=== PATIENT | female | born 1985 | race Caucasian/White ===

== ENCOUNTER 2016-08-25 10:20 | Inpatient (IN) | payer MEDICAID, OTHER ==
[~2016-08-25] VITALS: Ht 175.3 cm; Wt 145.2 kg
[~2016-08-25 10:20] MED LIST: ALBU18HF INH; BIFI4CAP PO; BUSP10TA2 PO; DULO60CA42 PO; HALO1TAB PO; LEVO25TA5 PO; LOPE2CAP PO; METF-496 PO; MIRT15TA6 PO; MONT10TA23 PO; NAPR220C11 PO; ONDA4TAB9 PO; PRAZ5CAP3 PO; PREG200C PO; PROP20TA5 PO; RANI150C4 PO
[2016-08-25 10:33] VITALS: BP 149/87; PULSE 106; RESP 18; O2SAT 97
[2016-08-25 10:59] VITALS: BP 125/79; PULSE 110; RESP 16; O2SAT 97
--- NOTE | 2016-08-25 11:33 | ED.REPORT ---
HPI-Psychiatric Illness Date of Service August 25, 2016 ED Provider: Yves Sheppard PA-C Sarita is a 21-year-old female female with a history of Borderline personality disorder, major depression with psychosis, fibromyalgia and orthostatic tachycardia syndrome who presents with a chief complaint of suicidal and homicidal ideations. She reports several months of suicidal and homicidal ideation. Patient states that she considered suicide by drinking excessive amounts of alcohol and taking pills. She is troubled by thoughts of killing children such as at a school or her niece and nephew. She states she would " cut them up with a knife." She states that she has "paranoia about clowns at work behind all the doors and control people." She states that "I think the children have global technology that they use to communicate with the clowns. I do not want her to anybody, but I think that is it either them or me." Patient has been to health services through Dr. Olinda Soto at the [facility]. She reports she has been taking her medications. She was last hospitalized 9 months ago in this institution. Patient reports history of a suicide attempt at age 13. "I had a knife and was going to cut myself as interrupted." Denies access to firearms, recreational drug use, suicide by family members or friends. Denies other complaints including fever, headache. Nursing Notes Stated Complaint: SUICIDAL,HOMICIDAL,PSYCHOTIC DEPRESSION Chief Complaint: Psychiatric Complaint Nursing Notes Reviewed: Yes Allergies: Coded Allergies: Penicillins (Verified Allergy, Severe, swelling in the joints, 01/20/15) lamotrigine (Verified Adverse Reaction, Severe, Hallucinations, 12/04/15) Sulfa (Sulfonamide Antibiotics) (Verified Adverse Reaction, Intermediate, nausea and vomiting, 01/20/15) hydrocodone (Verified Adverse Reaction, Intermediate, nausea and vomiting , 01/20/15) Scheduled Amitriptyline (Amitriptyline) 25 Mg Tab 25 MG PO HS Buspirone (Buspirone) 10 Mg Tablet 20 MG PO BID Duloxetine (Cymbalta) 60 Mg Capsule.dr 120 MG PO DAILY Haloperidol (Haloperidol) 5 Mg Tablet 5 MG PO TID Lisdexamfetamine Dimesylate (Vyvanse) 70 Mg Capsule 70 MG PO DAILY Montelukast (Montelukast) 10 Mg Tablet 10 MG PO MORNING Naproxen Sodium (Aleve) 220 Mg Capsule 220 MG PO MORNING take 2 in am for fibromyalgia pain Prazosin (Prazosin) 5 Mg Capsule 15 MG PO HS Propranolol HCl (Propranolol HCl) 20 Mg Tablet 40 MG PO QID Ranitidine (Ranitidine) 150 Mg Capsule 150 MG PO BID diphenhydrAMINE HCl (Benadryl) 25 Mg Capsule 25 MG PO BID Scheduled PRN Albuterol Sulfate (Ventolin HFA Inhaler) 200 Puff/18 Gm Inhaler 1-2 PUFF INH PRN For Shortness of Breath Epinephrine (Epinephrine) 0.1 Mg/1 Ml Syringe 0.1 MG IJ PRN For Anaphyllaxis Ondansetron ODT (Zofran ODT) 4 Mg Tablet 4 MG PO TID PRN PRN For Nausea oxyCODONE-Acetaminophen 5-325 mg (oxyCODONE-Acetaminophen 5-325 mg) 1 Each Tablet 2 TAB PO Q4H PRN PRN For Pain General Time Seen by MD: 11:09 Chief Complaint Homicidal ideation Risk-Psychiatric Illness Suicide Risk Stratification Suicide Risk Factors - Adult: : Prior psych admissionNo: Access to firearms, Alcohol use, Close associate suicide, Family Hx of Suicide, Previous attempt, Substance abuse RF Statements: Risk factors reviewed Past Medical History Past Medical History Notes: [facility]- for Major Depression, recurrent, with psychotic feactures Past Medical History Fibromyalgia Postural orthostatic tachycardia syndrome "POTS syndrome" Major depression Major Depression with Psychosis/Borderline Personalitly Asthma GERD Family History Noncontributory Smoking History Never Smoker Social History Alcohol Use: Denies alcohol use Drug Use: Denies drug use Other Social History: Local resident Ambulatory Status Independent Review of Systems General: Denies fever, chills, malaise. HEENT: Denies congestion, headache, sore throat. Respiratory: Denies dyspnea, cough, shortness of breath, wheezing. Cardiovascular: Denies chest pain, palpitations. Gastrointestinal: Denies vomiting, diarrhea, abdominal pain. Genitourinary: Denies frequency, urgency, dysuria, hematuria. Denies vaginal bleeding/discharge Otherwise as noted in HPI. Physical Exam General: Well appearing, well developed, well nourished, no acute distress. Head: Atraumatic, normocephalic. No mastoid tenderness. Eyes: No scleral icterus or injection. No discharge. PERRL. Vision grossly intact. Ears: Pinna and tragus nontender with manipulation. External auditory canal patent, atraumatic and without discharge. Tympanic membrane garcía, shiny and translucent without fluid, bulging, retraction or perforation. Hearing grossly intact. Nose: Symmetrical, nares patent without discharge. No frontal or maxillary sinus tenderness. Mouth/pharynx: normal dentition, mucus membranes moist. Tonsils 2+ and symmetrical, uvula midline. Pharynx noninjected, no cobblestoning or discharge. Voice clear. Neck: No tenderness or lymphadenopathy. Trachea midline. Respiratory: Regular rate and rhythm. Breath sounds present, clear to auscultation and equal bilaterally. No respiratory distress. No increased work of breathing, speaks in complete sentences. Cardiovascular: Tachycardic rate at 120 bpm (shortly after rising from floor) and regular rhythm, without murmur, gallop or rub. No pedal edema. Gastrointestinal: Abdomen flat and non-tender without guarding or rebound. Bowel sounds normoactive. Skin: Warm and dry. Neurological: Normal gait, rises from the floor easily, normal Romberg, negative pronator drift Cranial nerves: Vision grossly intact, PERRL, EOMI. Facial motion symmetrical, sensation to light touch over forehead, maxilla and mandible present and equal B /L. Voice clear and fluent, no drooling/pooling of saliva, uvula rises midline. Psychological: Alert and oriented x3. Behavior appropriate, interacts easily. Affect somewhat flat. Patient discusses bizarre delusions of clowns that control Society which are hiding behind her door, as well as transmission technology embedded in children, however she speaks of them with some detachment and describes it as "paranoia", implying some insight. Does state that "I believe they are real." She also refers frankly to "homicidal ideation " related to her cousins. No indication of responding to internal stimuli. Initial Vital Signs Vital Signs (First) Date Time Temp Pulse Resp B/P Pulse Ox O2 Delivery O2 Flow Rate FiO2 08/25/16 10:33 36.6 106 18 149/87 97 08/25/16 10:59 Room Air Initial VS: Vital signs abnormal (mild tachycardia) Interpretation & Diagnostics Lab Results Interpretation Result Diagram: 08/25/16 1139 08/25/16 1139 Test 08/25/16 11:05 08/25/16 11:38 08/25/16 11:39 Urine Opiates Screen Negative Urine Methadone Screen Negative Urine Barbiturates Screen Negative Urine Amphetamines Screen Positive Urine Benzodiazepines Screen Negative Urine Cocaine Metabolite Screen Negative Urine Cannabinoids Screen Negative Hold Urine Received (Received) White Blood Count 1.2th/mm3 (3.8-10.1) Red Blood Count 4.44mil/mm3 (3.90-5.20) Hemoglobin 13.5g/dL (12.0-15.6) Hematocrit 39.7% (35.0-46.0) Mean Corpuscular Volume 89.4fL (81-100) Mean Corpuscular Hemoglobin 30.4pg (27.0-35.0) Mean Corpuscular Hemoglobin Concent 34.0% (32.0-37.0) Red Cell Distribution Width 12.8% (12.3-15.4) Platelet Count 11bil/L (150-400) Neutrophils (%) (Auto) 8.2% (40-74) Lymphocytes (%) (Auto) 83.7% (14-46) Monocytes (%) (Auto) 0.8% (4-12) Eosinophils (%) (Auto) 1.6% (0-5) Basophils (%) (Auto) 1.6% (0-3) Sodium Level 136mEq/L (134-144) Potassium Level 4.8mEq/L (3.5-5.2) Chloride Level 96mEq/L (97-108) Carbon Dioxide Level 20mmol/L (18-29) Blood Urea Nitrogen 15mg/dL (6-20) Creatinine 0.98mg/dL (0.57-1.00) Estimat Glomerular Filtration Rate 94mL/min (>59) Glucose Level 167mg/dL (60-99) Calcium Level 9.6mg/dL (8.5-10.1) Total Bilirubin 0.4mg/dL (0.0-1.2) Aspartate Amino Transf (AST/SGOT) 40U/L (0-50) Alanine Aminotransferase (ALT/SGPT) 39U/L (0-32) Alkaline Phosphatase 89U/L (25-150) Total Protein 7.4g/dL (6.4-8.4) Albumin 4.6g/dL (3.4-5.0) Thyroid Stimulating Hormone (TSH) 2.770uIU/mL (0.450-4.500) Re-Eval/Medical Decision Med Decision/Clinical Course I discussed this case with Dr. Barahona. Consultation #1: Referral / Consult Name: Eduardo Miner MD Consulted With: Telephoner Call Returned at: 13:07 Note: Discussed findings of thrombocytopenia, leukopenia with Dr. Miner. He feels the patient will need a transfusion as well as a bone marrow biopsy which can be performed on Sunday. Considering the patient's psychiatric complaining he feels an admission to the medical floor is reasonable, he will consult tomorrow. Asks that a sample of peripheral blood be sent for flow cytometry. Consultation #2: Referral / Consult Name: Alec Peoples MD Consulted With: Hospitalist Call Returned at: 13:53 Car Builder: Accepts admit Note: Requests that we establish a early psychiatric consult. Consultation #3: Referral / Consult Name: Shalom Petit MD Consulted With: Psychiatry Call Returned at: 15:21 Note: Dr. Petit assessed the patient in the emergency department prior to being transferred to the floor. He has been prescribed for Haldol 5 mg twice a day as well as Ativan 1 mg 3 times a day and discontinue Zyprexa. She states she has no history of suicidal actions or homicidal actions and that he does not believe she is truly psychotic. He knows her well and has prescribed several neuroleptics with no reduction in hallucinations or paranoia. She believes her behavior is primarily related to an PTSD and borderline personality disorder. He states that he will see her on the floor tomorrow. Discharge & Departure Impression: Primary Impression: Thrombocytopenia Additional Impressions: Leukopenia Leukopenia type: unspecified Qualified Code: D72.819 - Decreased white blood cell count, unspecified Borderline personality disorder Disposition: ADMITTED TO HOSPITAL Referrals: Candi Sellers MD (PCP) EDSupervising Provider for APC: Ponec Barahona MD, Seth PA-C August 25, 2016 11:32
[2016-08-25 11:55] LABS: BASOPHILS % (AUTO) 1.6 % (0-3); EOSINOPHILS % (AUTO) 1.6 % (0-5); MONOCYTES % (AUTO) 0.8 % (4-12); Mean Corpuscular Hemoglobin 30.4 pg (27.0-35.0); Mean Corpuscular Volume 89.4 fL (81-100); NEUTROPHILS % (AUTO) 8.2 % (40-74)
[2016-08-25 12:48] LABS: Platelet Count 11 bil/L (150-400)
[2016-08-25] MEDS ORDERED: ONDA4TAB9 PO (13:27)
[2016-08-25] MEDS ORDERED: AMT25T PO (13:27)
[2016-08-25] MEDS ORDERED: [UNRECOGNIZED DRUG - OTHER] PO (13:27)
[2016-08-25] MEDS ORDERED: DIPH25CA6 PO (13:27)
[2016-08-25] MEDS ORDERED: HAL5 PO (13:27)
[2016-08-25] MEDS ORDERED: EPIN0.1S2 IJ (13:27)
[2016-08-25] MEDS ORDERED: Polyethylene Glycol (PEG) 17 Gm Powder PO PRN (14:00)
[2016-08-25] MEDS ORDERED: Ondansetron 2 mg/mL 2 mL Inj IVPUSH PRN (14:00)
[2016-08-25] MEDS ORDERED: Alum-Mag Hydrox-Simeth 30 mL Suspension PO PRN (14:00)
--- NOTE | 2016-08-25 14:05 | PCM.HPMED ---
Subjective Date of Service August 25, 2016 Primary Provider: Admitting Physician: Alec Peoples MD Primary Care Physician: Candi Sellers MD Attending Physician: Alec Peoples MD Chief Complaint: Suicidal/homicidal ideation History of Present Illness: 31-year-old female with a long history of severe depression with elements of psychosis came to the emergency room due to "a male voice in her head telling her she wanted to kill herself and others and how to do it". When I am speaking with the patient she is very calm and states she is actually afraid of dying but the voice keeps intruding into her thinking. While in the emergency room workup revealed that she was profoundly leukopenic/neutropenic and thrombocytopenic. She denies having been ill in the past month, no shortness of breath cough fevers abdominal pains nausea or vomiting diarrhea. She denies having any easy bleeding or bruising or even bleeding gums when she is brushing her teeth the near she comes as telling me about a lesion that bleeds a bit on the left upper side when she brushes. Review of Systems: Gen.: No fevers chills weight loss weight gain Eyes: no visual disturbances or blurring vision HEENT: No nose/throat drainage, no pain in ears or throat, no hearing loss Lymph: No lymph nodes noted Cardiac: No chest pain, orthopnea, PND, palpitations , pedal edema or dyspnea on exertion Pulmonary: no cough, wheezing or bringing up of sputum GI: No anorexia nausea vomiting blood or black in the stool : no dysuria hematuria urinary frequency or decrease in urine output Musculoskeletal: Joint swelling no joint pain no new muscle aches or back pain Neuro: No syncope, seizures no loss of consciousness no new focal weakness, numbness or tingling Psychiatric: New new anxiety insomnia or depression Suicidal and homicidal ideation as described above Endocrine: No new heat or cold intolerances polyuria or polydipsia Hematology: No lymphadenopathy or easy bleeding or bruising noted skin: No new rashes, stasis dermatitis Allergies Coded Allergies: Penicillins (Verified Allergy, Severe, swelling in the joints, 01/20/15) lamotrigine (Verified Adverse Reaction, Severe, Hallucinations, 12/04/15) Sulfa (Sulfonamide Antibiotics) (Verified Adverse Reaction, Intermediate, nausea and vomiting, 01/20/15) hydrocodone (Verified Adverse Reaction, Intermediate, nausea and vomiting , 01/20/15) Home Medications Amitriptyline (Amitriptyline) 25 Mg Tab 25 MG PO HS Buspirone (Buspirone) 10 Mg Tablet 20 MG PO BID Duloxetine (Cymbalta) 60 Mg Capsule.dr 120 MG PO DAILY Haloperidol (Haloperidol) 5 Mg Tablet 5 MG PO TID Lisdexamfetamine Dimesylate (Vyvanse) 70 Mg Capsule 70 MG PO DAILY Montelukast (Montelukast) 10 Mg Tablet 10 MG PO MORNING Naproxen Sodium (Aleve) 220 Mg Capsule 220 MG PO MORNING take 2 in am for fibromyalgia pain Prazosin (Prazosin) 5 Mg Capsule 15 MG PO HS Propranolol HCl (Propranolol HCl) 20 Mg Tablet 40 MG PO QID Ranitidine (Ranitidine) 150 Mg Capsule 150 MG PO BID diphenhydrAMINE HCl (Benadryl) 25 Mg Capsule 25 MG PO BID Scheduled PRN Albuterol Sulfate (Ventolin HFA Inhaler) 200 Puff/18 Gm Inhaler 1-2 PUFF INH PRN For Shortness of Breath Epinephrine (Epinephrine) 0.1 Mg/1 Ml Syringe 0.1 MG IJ PRN For Anaphyllaxis Ondansetron ODT (Zofran ODT) 4 Mg Tablet 4 MG PO TID PRN PRN For Nausea oxyCODONE-Acetaminophen 5-325 mg (oxyCODONE-Acetaminophen 5-325 mg) 1 Each Tablet 2 TAB PO Q4H PRN PRN For Pain PMH Fibromyalgia Postural orthostatic tachycardia syndrome "POTS syndrome" Major depression Major Depression with Psychosis/Borderline Personalitly Asthma GERD Family History-no known history of early diabetes cancer or heart disease Smoking History Never Smoker Social History Alcohol Use: Denies alcohol use Drug Use: Denies drug use Other Social History: Local resident Ambulatory Status Independent Social History Hx Alcohol Use: No Hx Substance Use: No Smoking Status: Never Smoker Exam Vital Signs Vital Sign - Last Date Time Temp Pulse Resp B/P Pulse Ox O2 Delivery O2 Flow Rate FiO2 08/25/16 10:59 36.6 110 16 125/79 97 Room Air Exam Gen.- A+ O 3 no apparent distress. Morbidly obese female lying in [facility] Eyes- open conjunctiva clear, pupils equal nonicteric Mouth- oral mucosa moist, no exudate No evidence of bleeding gums ENT- ears normal, nose normal Neck- supple/trach midline CVS- RRR no murmur or gallop Lungs- CTA GI- NABS/NT soft Musc- moving 4 no obvious deformity Neuro- cranial nerves II through XII intact to gross examination, nonfocal Skin- warm and dry, no rashes/lesions/wounds noted No signs of bruises Psych- pleasant and appropriate, quite as a matter fact he tells me about the voices talking of self-harm and harming others. She says they scare her Lab and Diagnostics Result Diagram: 08/25/16 1139 08/25/16 1139 Assessment & Plan 31-year-old female with a percussion and psychosis disorder presents to the emergency room with the same. In the workup she was found to have profound thrombocytopenia and leukopenia/neutropenia. Initial feeling is trace or side effects from Haldol/Zyprexa and there is no evidence of bleeding. Haldol that she started 9 months ago around the time of her last CBC which was normal and also she states is not working seems to be most likely offender. #Thrombocytopenia-differential includes viral, medication/other substance side effect (Haldol/Zyprexa and antipsychotics), liver disease, ITP and other autoimmune destructive disorders -Toxicology and alcohol screen negative except for amphetamine which she has been prescribed -Peripheral smear being requested to verify automatic differential -Checking EBV, Monospot, CMV and HIV -Transfusing sixpack and following up hours after first transfusion if platelets stay this is likely bone marrow suppression from medications -Of all her meds I think that Haldol is the most likely offender we will need to discuss what medications to utilize for control of her symptoms with Dr. Petit psychiatry. #Leukopenia/neutropenia-placing patient on neutropenic precautions, follow-up counts in a.m. #Depression with psychotic features/suicidal/homicidal ideation-thank you Dr. Petit psychiatry for consulting/following -Checking toxicology (positive for amphetamine patient taking prescribed amphetamine), alcohol screen, aspirin and Tylenol levels all negative -Holding vynase prescribed amphetamine at this #Prophylaxis-DVT, SCDs only heparin contraindicated, GI not indicated #Disposition- full code from home, not clear where she is going if she needs inpatient psychiatric treatment again when medically cleared. Alec Peoples MD August 25, 2016 14:05
[2016-08-25] MEDS ORDERED: LISD70CA2 PO (15:01)
[2016-08-25] MEDS ORDERED: OXYC1TAB24 PO (15:01)
[2016-08-25] MEDS ORDERED: NAPR220C11 PO (15:01)
[2016-08-25] MEDS ORDERED: ONDA4TAB6 PO (15:01)
[2016-08-25 15:18] LABS: INR 0.94 ratio
[2016-08-25] MEDS ORDERED: Albuterol 2.5 mg/3 mL Inhalation Solution NEB PRN (15:40)
[2016-08-25] MEDS ORDERED: diphenhydrAMINE 25 mg Capsule PO ONE (16:00)
[2016-08-25] MEDS: Albuterol 2.5 mg/3 mL Inhalation Solution NEB SCH (16:00)
--- NOTE | 2016-08-25 16:31 | DRSVH ---
PROCEDURE: CT BRAIN WITHOUT CONTRAST ([id number]) INDICATIONS: alt loc thrombocytopenia TECHNIQUE: Noncontrast 4.5 mm thick angled axial sections acquired from the foramen magnum to the vertex, with c oronal reformats. COMPARISON: [facility], MR, BRAIN W&W/O CONTRAST, 08/05/2014, 15:12. FINDINGS: Image quality: Excellent. CSF spaces: Basal cisterns are patent. No extra-axial fluid collections. Ventricles are normal in size and shape. Brain: No midline shift. No intracranial masses or hemorrhage. Nguyen-white matter interface is norm al. Skull and face: Calvarium and visualized facial bones are intact, without suspicious lesions. Sinuses: Visualized sinuses and mastoids are clear. IMPRESSION: No acute intracranial abnormality. Dictated by: Byron So M.D. on 08/25/2016 at 16:29 Approved by: Byron So M.D. on 08/25/2016 at 16:30
[2016-08-25] MEDS: 0.9% Sodium Chloride 250 ML IV SCH (16:45)
[2016-08-25] MEDS: LORazepam 1 mg Tablet PO PRN (16:50)
[2016-08-25 16:52] VITALS: BP 124/70; PULSE 122; RESP 16
[2016-08-25 16:55] VITALS: BP 124/70; PULSE 122; RESP 20; O2SAT 97
[2016-08-25 19:30] VITALS: BP 122/70; PULSE 112; RESP 20
--- NOTE | 2016-08-25 19:34 | NUR ---
Admission Pt arrived to [facility] from the ED at approx 1545. Pt arrived via w/c and was able to ambulate to hospital chair. IV SL, report from TAYLOR Ulloa in the ED. Admit completed and med rec done. Pt signed consent for platelet transfusion and agrees to sign no harm contract. Sitter at bedside. Pt appears diaphoretic, she states this is normal and is from her postural tachycardia. Pt answers questions appropriately and uses call light when needed.
--- NOTE | 2016-08-25 20:27 | CONS ---
[address] [address] CONSULTATION REPORT PATIENT: NIA LAST : 1985 MR#: [id number] ADMIT: 08/25/2016 JOB ID: [id number] DATE OF SERVICE: 08/25/2016 HISTORY OF PRESENT ILLNESS: The patient is a 31-year-old woman with borderline personality disorder and major depression that began about three years ago after her grandmother in front of her. Since that time, she has been hospitalized for psychotic depression approximately six times. She was seen today with suicidal and homicidal ideation. She was considering drinking excessive alcohol and killing herself with pills. She also had thoughts of killing children, such as her niece and nephew or local children at a school, cutting them up with a knife. She has been taking Cymbalta 120 mg by mouth daily, Haldol 5 mg by mouth three times daily, and Zyprexa. She denies any recreational drug use. Laboratory studies were done in the emergency department earlier today. She was found to be profoundly neutropenic with a total white count of 1.2 with 8% neutrophils and 84% lymphocytes. Hemoglobin was 13.5 with hematocrit 39.7%, and MCV of 89. Platelets were low at 11,000. She denied any bleeding or atypical bruising. She denies any recent fevers or signs of infection. PAST MEDICAL HISTORY: 1. Suicidal and homicidal ideation. 2. Psychotic depression with at least six hospitalizations in the past three years. 3. Hypothyroidism. 4. Postural tachycardia. 5. Hypertension. 6. GE reflux disease. 7. Fibromyalgia. 8. Asthma. ALLERGIES: 1. PENICILLIN. 2. LAMOTRIGINE. 3. SULFA. 4. HYDROCODONE. MEDICATIONS: 1. Vyvanse 70 mg p.o. daily. 2. Albuterol inhaler 1-2 puffs p.r.n. 3. Amitriptyline 25 mg p.o. q.h.s. 4. Buspirone 20 mg p.o. b.i.d. 5. Cymbalta 120 mg daily. 6. Haldol 5 mg p.o. t.i.d. 7. Levothyroxine 150 mcg p.o. daily. 8. Montelukast 10 mg p.o. q.a.m. 9. Naproxen 220 mg p.o. q.a.m. 10. Prazosin 15 mg p.o. q.h.s. 11. Propranolol 40 mg p.o. q.i.d. 12. Ranitidine 150 mg p.o. b.i.d. 13. Benadryl 25 mg p.o. b.i.d. 14. Epinephrine p.r.n. for anaphylaxis. 15. Ondansetron 4 mg p.o. t.i.d. p.r.n. for nausea. FAMILY HISTORY: The patient denies any family history of blood dyscrasias or leukemia. SOCIAL HISTORY: The patient and her live locally. She is a never smoker and denies alcohol abuse. She denies recreational drug use. REVIEW OF SYSTEMS: She reports suicidal and homicidal ideation as above, and per the emergency department visit. She denies any recent fevers or chills. No acute change in vision or hearing. No hoarseness or dysphagia. No shortness of breath or chest pain. She has occasional GE reflux symptoms. Occasional nausea. No recent vomiting, no diarrhea or constipation. No significant abdominal pain. No dysuria. No edema. Remaining review of systems is unremarkable. PHYSICAL EXAMINATION: This is a pleasant, younger woman, with a slightly flat affect but in no acute distress. Vitals afebrile. Vital signs stable. HEENT: Pupils equally round, reactive to light. Extraocular muscles intact. Sclerae anicteric. Conjunctivae pink. Mucous membranes moist. No oral lesions. Nodes: No adenopathy in the neck, axilla, or groin. Chest: Distant but clear. No wheezes or crackles. Cardiac exam: Regular rate and rhythm with normal S1, S2, a 1/6 systolic ejection murmur across the precordium. Abdomen: Large, soft, nontender, normoactive bowel tones. No palpable splenomegaly or masses. Extremities: Trace pedal edema, 1+ distal pulses. No calf tenderness. No cyanosis or clubbing. No petechiae or ecchymoses. Neuro: Alert and cooperative. Mild generalized weakness but nonfocal. Psychiatry: Troubled by thoughts of suicide and homicidal ideation. She has thought of killing children with a knife. She has paranoia about clowns controlling people with [employer]. LABORATORIES: WBC 1.2 with 8% neutrophils, 84% lymphocytes, 0.8% monocytes, 1.6%, eosinophils, 1.6% basophils. Hemoglobin 13.5, hematocrit 39.7%, MCV 89.4, platelets 11,000. Sodium 136, potassium 4.8, BUN 15, creatinine 0.98, glucose 167, AST 40, ALT 39, alkaline phosphatase 89 total protein 7, albumin 4.6. TSH 2.77. ASSESSMENT AND PLAN: Profound neutropenia and thrombocytopenia with preserved red cell production: The patient does not have a previously identified thrombocytopenia or leukopenia. She does not clearly have an enlarged spleen, although this is difficult to assess given her body habitus. Schedule abdominal ultrasound tomorrow to measure spleen size. Splenomegaly can be associated with splenic sequestration, which could lead to her current findings. However, the more likely etiology is medication interaction. I will review her entire medication list and recommend appropriate adjustments. She denies any unauthorized drug exposures. Strongly consider bone marrow studies, although we will need to wait until Sunday to pursue this option. Transfuse with platelets today to correct her thrombocytopenia and reduce bleeding risk. Place on neutropenic precautions given her profound absolute neutropenia. Thank you very much for allowing us to participate in your patient's care.
[2016-08-25] MEDS: BusPIRone 15 mg Dividose Tablet PO SCH (21:43)
[2016-08-25] MEDS: diphenhydrAMINE 25 mg Capsule PO SCH (21:48)
[2016-08-25 21:55] VITALS: BP 123/85; PULSE 95; RESP 18; O2SAT 96
[2016-08-25 23:20] LABS: BASOPHILS % (AUTO) 0.5 % (0-3); EOSINOPHILS % (AUTO) 1.8 % (0-5); MONOCYTES % (AUTO) 8.6 % (4-12); Mean Corpuscular Hemoglobin 29.8 pg (27.0-35.0); Mean Corpuscular Volume 90.3 fL (81-100); NEUTROPHILS % (AUTO) 50.8 % (40-74); Platelet Count 298 bil/L (150-400)
[2016-08-26 01:19] VITALS: BP 104/65; PULSE 120; RESP 18; O2SAT 95
[2016-08-26 05:19] VITALS: BP 103/70; PULSE 112; RESP 18; O2SAT 94
--- NOTE | 2016-08-26 05:43 | NUR ---
Transfusion / platelets completed and post platelet lab draw complete. Tolerated well, continues tachycardic with Hr up to 122 with activity, low 100's at rest, no c/o chest pain.
--- NOTE | 2016-08-26 05:46 | NUR ---
mentation Alert / calm and appropriate with care. states she is still bothered by a male voice that tells her to harm other people. Denies the urge to act on these feelings. Quiet overnight, sitter at bedside.
[2016-08-26 05:55] LABS: BASOPHILS % (AUTO) 0.3 % (0-3); EOSINOPHILS % (AUTO) 2.8 % (0-5); MONOCYTES % (AUTO) 10.4 % (4-12); Mean Corpuscular Hemoglobin 30.2 pg (27.0-35.0); Mean Corpuscular Volume 90.9 fL (81-100); NEUTROPHILS % (AUTO) 43.5 % (40-74); Platelet Count 268 bil/L (150-400)
[2016-08-26] MEDS: Albuterol 2.5 mg/3 mL Inhalation Solution NEB SCH ×5 (07:00→20:00)
[2016-08-26 07:27] VITALS: BP 96/63; PULSE 93; RESP 18; O2SAT 95
[2016-08-26 08:08] LABS: Vitamin B12 527 pg/mL (211-946)
[2016-08-26] MEDS ORDERED: [UNRECOGNIZED DRUG - OTHER] PO SCH (08:30)
--- NOTE | 2016-08-26 08:35 | PROG NOTE ---
[address] [address] PROGRESS NOTE PATIENT: NAI LAST : 1985 MR#: [id number] ADMIT: 08/25/2016 JOB ID: [id number] DATE: 08/26/2016 SUBJECTIVE: The patient is a 31-year-old woman admitted to the hospital yesterday with suicidal/homicidal ideation. During evaluation in the emergency department she was found to have significant leukopenia and thrombocytopenia. She has been afebrile. No bleeding. She received platelets to correct thrombocytopenia with a platelet count of 11,000. She is in better spirits this morning. No fevers overnight. OBJECTIVE: Vitals: T 36.4, P 93, R 18, BP 96/63. HEENT: Conjunctivae pink. Mucous membranes moist. Chest: Distant but clear. Cardiac exam: Regular rate and rhythm with normal S1, S2. Abdomen: Soft, nontender. No palpable masses or organomegaly. Extremities: No edema. No petechiae, 2+ distal pulses. LABORATORIES: WBC 7.6, hemoglobin 13.6, hematocrit 41%, platelets 268,000. B12 pending. Folate pending. ASSESSMENT AND PLAN: Resolved neutropenia and thrombocytopenia: The patient's laboratory studies are remarkably improved today. She received platelet transfusion with single donor platelets last evening, which could explain resolution of her thrombocytopenia, but did not receive any growth factor support that could explain her improved leukopenia/neutropenia. I cannot fully explain the laboratory abnormalities of yesterday, other than suggesting possible laboratory error. No indication for further intervention at this time. In particular, no indication for bone marrow studies or for abdominal screening to assess her spleen. Recommend followup with her primary care provider as an outpatient to monitor hematologic parameters moving forward.
[2016-08-26] MEDS: LORazepam 1 mg Tablet PO PRN (08:51)
[2016-08-26] MEDS: BusPIRone 15 mg Dividose Tablet PO SCH (08:52)
[2016-08-26] MEDS: diphenhydrAMINE 25 mg Capsule PO SCH ×2 (08:52→21:19)
[2016-08-26] MEDS: DULoxetine 30 mg DR Capsule PO SCH (08:52)
--- NOTE | 2016-08-26 09:09 | NUR ---
Social Work- Brief Note Data: EMR reviewed. Pt is a 31 year old female admitted 08/25/16 for Depression with psychotic features/suicidal/homicidal ideation, thrombocytopenia, leukopenia per H&P. Oncology is following pt. Psychiatry has been consulted, awaiting recommendations. Pt's insurance is [employer], PCP is Candi Sellers MD. Per chart review, pt resides at home with her where she is independent. Per RN notes, pt has been ambulating independently in her room. Pt received platelet transfusion yesterday. Pt has no DPOA on file, BREAKFAST HOSTESS to provide paperwork to pt at bedside. BREAKFAST HOSTESS to follow up with patient after psychiatry has seen patient and made recommendations. Assessment: Pt who would benefit from Psychiatry consultation Plan: Pt is independent at baseline. BREAKFAST HOSTESS to follow up with patient regarding discharge plan after psychiatry has seen patient and made recommendations. IRIS Mosqueda
--- NOTE | 2016-08-26 11:43 | PCM.DIMED ---
Discharge Instructions Date of Service August 26, 2016 Dates of Hospitalization August 25, 2016 at 13:45 Discharge Diagnosis Discharge Diagnosis Suicidal/homicidal ideation, unexplained leukopenia/thrombocytopenia (low white cell count, low platelet count) Diet No restrictions Activity No restrictions Call your provider Fever or Chills, Bleeding Patient Instructions Follow-up plan Discharging to inpatient psychiatry. Patient should have CBC with differential perhaps 08/28, 08/31, 09/04 and then periodically if all normal. This may have been a medication side effect were simple lab error. Follow-up Provider: Candi Sellers MD Follow-up with PCP in: Other (no follow-up required unless blood work abnormal) Alec Peoples MD August 26, 2016 11:43
[2016-08-26 11:49] VITALS: BP 129/85; PULSE 120
--- NOTE | 2016-08-26 13:32 | NUR ---
Mentation Pt. reports moderate depression and anxiety this morning. Reports active suicidal thoughts, saying that she has a plan if she were discharged now, to go home, get drunk and overdose on pills. Reports hearing voices, seeing demons behind doors, and has homicidal thoughts towards children. Pt. is pleasant and cooperative. Sitter in the room for 1:1 observation.
--- NOTE | 2016-08-26 13:44 | NUR ---
Social Work- Discharge from [facility] Data &Assessment: Per national sales, Psychiatry has seen patient and is transferring pt to [facility] with MD Petit accepting. All updated and agreeable to plan. Plan: Pt to transfer to [facility]. No SW needs identified at this time. IRIS Mosqueda Addendum: 08/26/16 at 1436 by ROSA NORRIS SW received call from unit regarding pt's bed certification through [facility]. IRIS is working on certification, will update unit when complete. IRIS Mosqueda
[2016-08-26] MEDS: 0.9% Sodium Chloride 250 ML IV SCH (14:10)
--- NOTE | 2016-08-26 14:16 | PCM.CHPPSY ---
[facility] Date of Service August 26, 2016 Admission Date/Time August 25, 2016 at 13:45 Reason for Admission Patient presented complaining of auditory hallucinations of a command nature to kill children and to kill herself and during the workup she was found to have profound thrombocytopenia and leukopenia/neutropenia, she was admitted to medicine for a platelet transfusion and a workup Primary Physician Attending Physician: Alec Peoples MD Other Physician: Source of Information: Patient Interview, Chart Review, Clinical Materials Accompanying, Observation Chief Complaint Chief Complaint Suicidal/homicidal ideation The patient is a 31-year-old female with recent symptom exacerbation over the last 3 years of a chronic depressive disorder resulting in an atypical presentation of auditory, visual, and command hallucinations. In the emergency room the initial reports of her white blood cell count and platelets were in the critically low range. Oncology was consulted and she was given platelets and admitted to the intensive care unit. Over the past 24 hours all the results have come back essentially normal and the medical team believes that this was a laboratory error. The medicine service we will be discharging her today and I am recommending admission to our unit to deal with complaint of command auditory hallucinations. An MRI with and without contrast was obtained last year and did not demonstrate any significant abnormalities, and it is felt that her symptoms are primarily psychiatric in origin. She has been admitted multiple times to [facility] and to our care center. She has also been admitted to multiple different hospitals in the area. She attempts to treat the auditory hallucinations with high doses of multiple antipsychotics. When she is here and under observation we have not noticed a significant decrease in the auditory hallucinations no matter what neuroleptic or dose is used. She states that she sees Dr. Carissa Partida, a psychiatrist in [place]. She reports Dr. Partida increased the Haldol from 2 mg twice a day to 5 mg 3 times a day and added Zyprexa 5 twice a day. The patient had a brief decrease in symptoms for 1-2 days, and then again had a recurrence of symptoms. She currently reports manical clowns master-minding her demise. She feels that there are demons's waiting around the hospital. She stated this morning she had command auditory hallucinations to kill children. She had friends visit and they brought in children and the voices told her to kill the children. She has no history of violence or violently acting out. Of note her urine tox was positive for amphetamines. Once sedated on regularly high doses of Haldol and Zyprexa I believe she needs Vyvanse and stimulants to stay awake. She is terrified she will act on ego dystonic obsessive thoughts of suicide and homicide. In my treatment of her I have not noticed antipsychotics to alter the intensity nor the frequency of these symptoms. I am concerned that the patient my have complex PTSD as the main source of these symptoms. In the past she has reported spiders coming off of her body and then running down the stairs, as well as that alien creatures had entered her and were broadcasting via the telephone lines for her to take medications. MH Presenting Symptoms: Mood (Months), Depression (Months), with Psychotic Features (Months), Anxiety (Weeks), Panic (Months) MH Vegetative Functioning: Sleep (Decreased), Appetite, Energy (Decreased), Libido (Decreased) Past Medical History Heme/Onc: Bruise/Bleeding Tendency (patient's platelets and WBCs were critically low in the ER but patient has no bruising bleeding and the repeat labs returned to normal) Other Pertinent History: She reports a history of fibromyalgia, postural orthostatic hypertension, and asthma. Allergies Coded Allergies: Penicillins (Verified Allergy, Severe, swelling in the joints, 01/20/15) lamotrigine (Verified Adverse Reaction, Severe, Hallucinations, 12/04/15) Sulfa (Sulfonamide Antibiotics) (Verified Adverse Reaction, Intermediate, nausea and vomiting, 01/20/15) hydrocodone (Verified Adverse Reaction, Intermediate, nausea and vomiting , 01/20/15) Home Medications Scheduled Amitriptyline (Amitriptyline) 25 Mg Tab 25 MG PO HS (Reported) Last Taken: Unknown Dose on 08/25/16 0000 Buspirone (Buspirone) 10 Mg Tablet 20 MG PO BID (Reported) Last Taken: Unknown Dose on 08/25/16 0700 Duloxetine (Cymbalta) 60 Mg Capsule.dr 120 MG PO DAILY (Reported) Last Taken: Unknown Dose on 08/25/16 0700 Haloperidol (Haloperidol) 5 Mg Tablet 5 MG PO TID (Reported) Last Taken: UNKNOWN on 08/25/16 0700 Lisdexamfetamine Dimesylate (Vyvanse) 70 Mg Capsule 70 MG PO DAILY (Reported) Last Taken: Unknown Dose on 08/25/16699 Montelukast (Montelukast) 10 Mg Tablet 10 MG PO MORNING (Reported) Last Taken: Unknown Dose on 08/25/16 07 Naproxen Sodium (Aleve) 220 Mg Capsule 220 MG PO MORNING (Reported) take 2 in am for fibromyalgia pain Prazosin (Prazosin) 5 Mg Capsule 15 MG PO HS (Reported) Last Taken: Unknown Dose on 08/25/16 0000 Propranolol HCl (Propranolol HCl) 20 Mg Tablet 40 MG PO QID (Reported) Last Taken: Unknown Dose on 08/25/16699 Ranitidine (Ranitidine) 150 Mg Capsule 150 MG PO BID (Reported) Last Taken: Unknown Dose on 08/25/16699 diphenhydrAMINE HCl (Benadryl) 25 Mg Capsule 25 MG PO BID (Reported) Last Taken: Unknown Dose on 08/25/16699 Scheduled PRN Albuterol Sulfate (Ventolin HFA Inhaler) 200 Puff/18 Gm Inhaler 1-2 PUFF INH PRN For Shortness of Breath (Reported) Last Taken: Unknown Dose on Unknown Date & Time Epinephrine (Epinephrine) 0.1 Mg/1 Ml Syringe 0.1 MG IJ PRN For Anaphyllaxis (Reported) Last Taken: Unknown Dose on Unknown Date & Time Ondansetron ODT (Zofran ODT ) 4 Mg Tablet 4 MG PO TID PRN PRN For Nausea (Reported) oxyCODONE-Acetaminophen 5-325 mg (oxyCODONE-Acetaminophen 5-325 mg) 1 Each Tablet 2 TAB PO Q4H PRN PRN For Pain (Reported) Last Taken: Unknown Dose on Unknown Date & Time Discontinued Medications ([vyaance]) 70 MG PO DAILY (Reported) Bifidobacterium Infantis (Align) 4 Mg Capsule 4 MG PO MORNING (Reported) Haloperidol (Haloperidol) 1 Mg Tablet 2 MG PO BID Levothyroxine (Levothyroxine) 25 Mcg Tablet 150 MCG PO DAILY (Reported) Last Taken: Unknown Dose on 08/25/1600 Loperamide (Loperamide) 2 Mg Capsule 2 MG PO QAM (Reported) Metformin ER (Metformin ER) 1,000 Mg Tablet 2,000 MG PO DAILY (Reported) Mirtazapine (Mirtazapine) 15 Mg Tablet 15 MG PO HS Naproxen Sodium (Aleve) 220 Mg Capsule 440 MG PO MORNING (Reported) Last Taken: Unknown Dose on 08/25/16 0700 Ondansetron (Zofran) 4 Mg Tablet 4 MG PO TID PRN PRN For Nausea (Reported) Last Taken: Unknown Dose on Unknown Date & Time Ondansetron ODT (Zofran ODT ) 4 Mg Tablet 4 MG PO Q4H PRN PRN For Nausea (Reported) Pregabalin (Lyrica) 200 Mg Capsule 200 MG PO BID (Reported) Psychiatric Treatment History Multiple inpatient admissions for similar chief complaints. She has had she has been admitted multiple times in to our unit in 1999 1414 and 16. She states she sees Dr. Carissa Partida in [place]. The [facility] She has been on trials of Zyprexa Abilify Risperdal Saphris Seroquel lithium Haldol Vyvanse BuSpar Cymbalta prazosin Past Suicide Attempts Relevant History She reports that she has cut on herself from the age of 11 to 20, but has never actually attempted to kill herself before. Hx non-suicidal Self-Injury Relevant History Relevant History Details: Hx Violence Towards Other Hx violence towards others?: No Past Medical History Past Medical/Surgical History Currently ?: No Hx Hospitalization: Yes (lithium toxicity) Hx Surgeries: Yes (galbladder out 5yrs ago) Hx Anesthesia Reactions: No Past Social History Family: Other (lives with her partner and her mother) Living Arrangement: with Family Patient Education Level: Graduated HS, Graduated College Currently & use tobac: Yes Cessation med contraindicated?: The patient is a high school graduate with a 3.9 GPA who obtained a BA in history. 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 She has a who is a PRE[employer] ASSEMBLER at [employer], and they have been together since 2008, and were as soon as it was possible in [facility]. She is employed by the [employer]. She receives approximately 2000 dollars per month. She lives with her and her parents in another floor of their parent's house. She has one sister who lives in [place]. She denies a history of physical, sexual, or emotional abuse. She denies any legal history. Review of Systems Constitutional: No: Chills, Fever, Malaise, Other, Sweats, Weakness Cardiovascular: Denies: Chest Pain, Edema, Lt Headedness, Orthopnea, Other, Palpitations, Paroxysmal Noc. Dyspnea Respiratory: Denies: Cough, Hemoptysis, Other, Pleuritic Chest Pain, SOB with Exertion, Shortness of Breath, Sputum, Wheezing Gastrointestinal: Denies: Abdominal Pain, Change in Appetite, Constipation, Diarrhea, Heartburn, Hematochezia, Melena, Nausea, Other, Use of Laxatives, Vomiting Genitourinary: Denies: Anuria, Change in Frequency, Dysuria, Hematuria, Incontinence, Nocturia, Other, Retention Psychologic: Reports: Agitation, Disorientation, Excitation, Giddiness, Hostile , Insomnia, Instability, Pili, Nervousness, Night Terrors, Other, Perseveration , Phobia, Sexual Disturbances Mental Status Exam Vital Signs Vital Signs Date Time Temp Pulse Resp B/P Pulse Ox O2 Delivery O2 Flow Rate FiO2 08/26/16 11:49 120 129/85 08/26/16 07:27 36.4 93 18 96/63 95 Room Air Appearance: Neat/well groomed Attitude: Pleasant, Cooperative Behavior: No unusual behavior Affect: Well Modulated/Appropriate Mood: Anxious, Fearful Thought Process/Associations: Logical/Sequential, Goal Directed Speech Production: Normal Speech Rate: Normal Speech Articulation: Normal Thought Content: Negativistic, Other (command auditory hallucinations to kill children) Danger to Self/Suicidal Ideati: Active Danger to Others: Thoughts/Plans of Harming Others Hallucinations: Auditory (Endorses), Visual (Endorses) Consciousness: Alert Orientation: Person, Place, Date, Situation Memory: Grossly Intact Estimate Intellectual Function: Above Average Basis for IQ estimate: Awareness current events, Word use/vocabulary, Educational history, Employment history Attention/Concentration & Cogn: Grossly Intact Cognitive Testing Method: Abstract Reasoning during interview Insight: Limited Judgement: Limited Result Diagram: 08/26/1651908/26/16519 Mental Health Plan The patient is a 31-year-old female with recent symptom exacerbation over the last 3 years of a chronic depressive disorder resulting in an atypical presentation of auditory, visual, and command hallucinations. In the emergency room the initial reports of her white blood cell count and platelets were in the critically low range. Oncology was consulted and she was given platelets and admitted to the intensive care unit. Over the past 24 hours all the results have come back essentially normal and the medical team believes that this was a laboratory error. The medicine service we will be discharging her today and I am recommending admission to our unit to deal with complaint of command auditory hallucinations. An MRI with and without contrast was obtained last year and did not demonstrate any significant abnormalities, and it is felt that her symptoms are primarily psychiatric in origin. She has been admitted multiple times to [facility] and to our care center. She has also been admitted to multiple different hospitals in the area. She attempts to treat the auditory hallucinations with high doses of multiple antipsychotics. When she is here and under observation we have not noticed a significant decrease in the auditory hallucinations no matter what neuroleptic or dose is used. She states that she sees Dr. Carissa Partida, a psychiatrist in [place]. She reports Dr. Partida increased the Haldol from 2 mg twice a day to 5 mg 3 times a day and added Zyprexa 5 twice a day. The patient had a brief decrease in symptoms for 1-2 days, and then again had a recurrence of symptoms. She currently reports manical clowns master-minding her demise. She feels that there are demons's waiting around the hospital. She stated this morning she had command auditory hallucinations to kill children. She had friends visit and they brought in children and the voices told her to kill the children. She has no history of violence or violently acting out. Of note her urine tox was positive for amphetamines. Once sedated on regularly high doses of Haldol and Zyprexa I believe she needs Vyvanse and stimulants to stay awake. She is terrified she will act on ego dystonic obsessive thoughts of suicide and homicide. In my treatment of her I have not noticed antipsychotics to alter the intensity nor the frequency of these symptoms. I am concerned that the patient my have complex PTSD as the main source of these symptoms. 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 Lutz III 1. Recent platelet transfusion for presumed critically low platelets and white blood cell count. This appears to have been a laboratory error and the patient has been medically cleared for discharge 2. Asthma. 3. Fibromyalgia. Lutz IV Moderate with worsening psychotic symptoms. Lutz V Global Assessment of Functioning 30. Medications Treatments Recommend transfer to the psychiatric unit after medically cleared for further care and treatment. Recommend continue current medications Patient agreeable to voluntary transfer once certified for admission. Shalom Petit MD August 26, 2016 14:16
--- NOTE | 2016-08-26 14:53 | PCM.DC.MED ---
Discharge Summary Date of Service August 26, 2016 Dates of Hospitalization Date of Hospital Admission August 25, 2016 at 13:45 Date of Discharge: August 26, 2016 Providers: Admitting Physician: Alec Peoples MD Primary Care Physician: Candi Sellers MD Attending Physician: Alec Peoples MD Diagnosis at Time of Discharge Diagnosis at Time of Discharge Suicidal/homicidal ideation, unexplained leukopenia/thrombocytopenia (low white cell count, low platelet count) Consultations bal Miner oncDolly Petit, psychiatry Procedures XRay, CTs & MRIs PROCEDURE: CT BRAIN WITHOUT CONTRAST ([id number]) INDICATIONS: alt loc thrombocytopenia TECHNIQUE: Noncontrast 4.5 mm thick angled axial sections acquired from the foramen magnum to the vertex, with coronal reformats. COMPARISON: [facility], MR, BRAIN W&W/O CONTRAST, 08/05/2014, 15:12. FINDINGS: Image quality: Excellent. CSF spaces: Basal cisterns are patent. No extra-axial fluid collections. Ventricles are normal in size and shape. Brain: No midline shift. No intracranial masses or hemorrhage. Nguyen-white matter interface is normal. Skull and face: Calvarium and visualized facial bones are intact, without suspicious lesions. Sinuses: Visualized sinuses and mastoids are clear. IMPRESSION: No acute intracranial abnormality. Dictated by: Byron So M.D. on 08/25/2016 at 16:29 Brief History 31-year-old female with a long history of severe depression with elements of psychosis came to the emergency room due to "a male voice in her head telling her she wanted to kill herself and others and how to do it". When I am speaking with the patient she is very calm and states she is actually afraid of dying but the voice keeps intruding into her thinking. While in the emergency room workup revealed that she was profoundly leukopenic/neutropenic and thrombocytopenic. She denies having been ill in the past month, no shortness of breath cough fevers abdominal pains nausea or vomiting diarrhea. She denies having any easy bleeding or bruising or even bleeding gums when she is brushing her teeth the near she comes as telling me about a lesion that bleeds a bit on the left upper side when she brushes. 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 In the workup she was found to have profound thrombocytopenia and leukopenia/neutropenia. Initial feeling is trace or side effects from Haldol/Zyprexa and there is no evidence of bleeding. Haldol that she started 9 months ago around the time of her last CBC which was normal and also she states is not working seems to be most likely offender. 08/26 all hematologic issues corrected on CBC with differential. Thank you Dr. Miner hematology consultation Whether this was actual thrombocytopenia/leukopenia is in doubt. Perhaps there was a lab error of some sort is not entirely clear. It appears that patient never had symptoms or story consistent with the lab abnormalities, there were totally resolved within [address] Miner hematology/oncology see his note for further commentary. Thank you Dr. Petit the patient's being discharged to inpatient psychiatry. #Thrombocytopenia-differential includes viral, medication/other substance side effect (Haldol/Zyprexa and antipsychotics), liver disease, ITP and other autoimmune destructive disorders. Resolved 08/26 -Toxicology and alcohol screen negative except for amphetamine which she has been prescribed -Peripheral smear being requested to verify automatic differential -MARGI/rheumatoid factor negative -Checking EBV, Monospot, negative CMV and HIV other serologies and autoimmune -Transfusing sixpack and following up hours after first transfusion if platelets stay this is likely bone marrow suppression from medications -Of all her meds I think that Haldol is the most likely offender we will need to discuss what medications to utilize for control of her symptoms with Dr. Petit psychiatry. #Leukopenia/neutropenia-placing patient on neutropenic precautions, follow-up counts in a.m. resolved 08/26 #Depression with psychotic features/suicidal/homicidal ideation-thank you Dr. Petit psychiatry for consulting/following -Checking toxicology (positive for amphetamine patient taking prescribed amphetamine), alcohol screen, aspirin and Tylenol levels all negative -Holding vynase prescribed amphetamine at this #Prophylaxis-DVT, SCDs only heparin contraindicated, GI not indicated #Disposition- full code from home, discharge/transfer to inpatient psychiatric treatment patient is medically cleared. Exam Vital Signs (Last) Date Time Temp Pulse Resp B/P Pulse Ox O2 Delivery O2 Flow Rate FiO2 08/26/16 11:49 120 129/85 08/26/16 07:27 36.4 18 95 Room Air Test 08/25/16 11:05 5/12/17 11:38 08/25/16 11:39 08/25/16 14:10 Urine Opiates Screen Negative Urine Methadone Screen Negative Urine Barbiturates Screen Negative Urine Amphetamines Screen Positive Urine Benzodiazepines Screen Negative Urine Cocaine Metabolite Screen Negative Urine Cannabinoids Screen Negative Hold Urine Received (Received) Total Bilirubin 0.4mg/dL (0.0-1.2) Aspartate Amino Transf (AST/SGOT) 40U/L (0-50) Alanine Aminotransferase (ALT/SGPT) 39U/L (0-32) Alkaline Phosphatase 89U/L (25-150) Total Protein 7.4g/dL (6.4-8.4) Albumin 4.6g/dL (3.4-5.0) Thyroid Stimulating Hormone (TSH) 2.770uIU/mL (0.450-4.500) Prothrombin Time 10.0sec (8.1-12.5) Prothromb Time International Ratio 0.94ratio Test 08/25/16 14:55 08/26/16 05:20 Erythrocyte Sedimentation Rate 3mm/hr (0-32) Reticulocyte Count,Calculated 1.6% (0.6-2.6) Vitamin B12 Level 527pg/mL (211-946) Folate > 19.9ng/mL (>3.0) HCG Beta Subunit < 0.500mIU/mL Salicylates Level < 3.0ug/mL (30-250) Acetaminophen Level < 15.0ug/mL Rx (10-25) Alcohols < 10mg/dL (0-10) Rheumatoid Factor <10.0IU/mL (0.0-13.9) Monoscreen Negative (Negative) HIV (1&2) Ag and Ab, 4th Generation Non reactive (Non Reactive) White Blood Count 7.6th/mm3 (3.8-10.1) Red Blood Count 4.51mil/mm3 (3.90-5.20) Hemoglobin 13.6g/dL (12.0-15.6) Hematocrit 41.0% (35.0-46.0) Mean Corpuscular Volume 90.9fL (81-100) Mean Corpuscular Hemoglobin 30.2pg (27.0-35.0) Mean Corpuscular Hemoglobin Concent 33.2% (32.0-37.0) Red Cell Distribution Width 13.0% (12.3-15.4) Platelet Count 268bil/L (150-400) Neutrophils (%) (Auto) 43.5% (40-74) Lymphocytes (%) (Auto) 42.9% (14-46) Monocytes (%) (Auto) 10.4% (4-12) Eosinophils (%) (Auto) 2.8% (0-5) Basophils (%) (Auto) 0.3% (0-3) Sodium Level 137mEq/L (134-144) Potassium Level 4.1mEq/L (3.5-5.2) Chloride Level 96mEq/L (97-108) Carbon Dioxide Level 24mmol/L (18-29) Blood Urea Nitrogen 12mg/dL (6-20) Creatinine 0.97mg/dL (0.57-1.00) Estimat Glomerular Filtration Rate 95mL/min (>59) Glucose Level 106mg/dL (60-99) Calcium Level 9.0mg/dL (8.5-10.1) Discharge Medications Discharge Medications Amitriptyline (Amitriptyline) 25 Mg Tab 25 MG PO HS (Reported) Buspirone (Buspirone) 10 Mg Tablet 20 MG PO BID (Reported) Duloxetine (Cymbalta) 60 Mg Capsule.dr 120 MG PO DAILY (Reported) Haloperidol (Haloperidol) 5 Mg Tablet 5 MG PO TID (Reported) Lisdexamfetamine Dimesylate (Vyvanse) 70 Mg Capsule 70 MG PO DAILY (Reported) Montelukast (Montelukast) 10 Mg Tablet 10 MG PO MORNING (Reported) Naproxen Sodium (Aleve) 220 Mg Capsule 220 MG PO MORNING (Reported) take 2 in am for fibromyalgia pain Prazosin (Prazosin) 5 Mg Capsule 15 MG PO HS (Reported) Propranolol HCl (Propranolol HCl) 20 Mg Tablet 40 MG PO QID (Reported) Ranitidine (Ranitidine) 150 Mg Capsule 150 MG PO BID (Reported) diphenhydrAMINE HCl (Benadryl) 25 Mg Capsule 25 MG PO BID (Reported) As needed Albuterol Sulfate (Ventolin HFA Inhaler) 200 Puff/18 Gm Inhaler 1-2 PUFF INH PRN For Shortness of Breath (Reported) Epinephrine (Epinephrine) 0.1 Mg/1 Ml Syringe 0.1 MG IJ PRN For Anaphyllaxis ( Reported) Ondansetron ODT (Zofran ODT) 4 Mg Tablet 4 MG PO TID PRN PRN For Nausea ( Reported) oxyCODONE-Acetaminophen 5-325 mg (oxyCODONE-Acetaminophen 5-325 mg) 1 Each Tablet 2 TAB PO Q4H PRN PRN For Pain (Reported) Followup Plan Disposition: Inpatient psychiatry Follow-up plan Discharging to inpatient psychiatry. Patient should have CBC with differential perhaps 08/28, 08/31, 09/04 and then periodically if all normal. This may have been a medication side effect were simple lab error. Discharge Diet: No restrictions Discharge Activity: No restrictions Follow-up Provider: Candi Sellers MD Follow-up with PCP in: Other (no follow-up required unless blood work abnormal) Time spent Greater than 30 minutes Attending Statement Y the patient was leukopenic/thrombocytopenic or if this was actually was not clear. Recommend follow-up CBC 08/28, 08/31, 09/05 and then periodically every month or 2 on a tapering schedule if there are no further events like this. Alec Peoples MD August 26, 2016 14:53
[2016-08-26 15:31] VITALS: BP 116/78; PULSE 96; RESP 18; O2SAT 97
--- NOTE | 2016-08-26 15:35 | NUR ---
Social Work Note - Clinical Certification FENCE ERECTOR completed EMR review: Dr Petit evaluated pt on [facility] accepted pt for admission. FENCE ERECTOR called [facility], spoke with Van who approved admission for 5 days with Review request due by 08/30/16. FENCE ERECTOR called [facility] - spoke with Estrella Mathur who will make arrangements for transfer. Plan: transfer to [facility] with Dr Petit accepting. ALMA Bentley
--- NOTE | 2016-08-26 16:30 | NUR ---
Nurses Admission Note 31 year old voluntary female certified X 5 days by the [facility] transferred from [facility]. Patient has been reporting auditory hallucinations telling her to harm children because they have special shepherd to "communicate with the clowns." Patient rated her depression at 7/10 and contracted for safety. She believes her medication has stopped working and is concerned she has tried them all. Patients' thought content generally was reality based and logical until talking about her fear and homicidal thoughts regarding children. Patients' Zyprexa has been discontinued due to weight gain. Patients' affect was constricted with a relaxed mood. Will maintain q 15min. checks for safety and support.
[2016-08-26] MEDS: oxyCODONE-Acetamin 5-325 mg Tablet PO SCH ×2 (20:30→21:25)
[2016-08-26] MEDS ORDERED: Albuterol HFA 200 Puff Inhaler (Vent Pts Only) INHALATION PRN (23:55)
--- NOTE | 2016-08-27 05:06 | NUR ---
nursing, nights, 11-7 s/o- has appeared to sleep after 2300 during q 15 minute assessments. a- no apparent distress. p- monitor behavior/emotional state, quality, times and amount of sleep, use and effect of medication. sammy
[2016-08-27] MEDS: DULoxetine 30 mg DR Capsule PO SCH (08:11)
[2016-08-27] MEDS: BusPIRone 15 mg Dividose Tablet PO SCH ×2 (08:11→14:07)
[2016-08-27] MEDS: diphenhydrAMINE 25 mg Capsule PO SCH ×2 (08:11→20:34)
[2016-08-27] MEDS: oxyCODONE-Acetamin 5-325 mg Tablet PO SCH ×2 (08:30→20:35)
[2016-08-27 10:00] VITALS: BP 140/95; PULSE 103; RESP 16
--- NOTE | 2016-08-27 17:24 | PCM.PNPSY ---
Subjective Date of Service August 27, 2016 Subjective The patient reported that she was still experiencing a fear of children having "[employer] technology." She also endorsed ongoing concerns about a planned conspiracy and seeing demons out the window. She also was concerned that some of the individuals on the unit (staff/patients) may be involved but had no thought or intention of harming anyone. She denied side effects. She expressed relief that her thrombocytopenia was not related to cancer but was concerned about the possibility of a dropping again. She requested naproxen for pain. Sleep: 7 hours Appetite: "Fine" Suicidal and homicidal ideation: Denies suicidal ideation and fears of homicidal ideation but no intent or plan at this time. Auditory hallucinations: "Laughing clowns" Visual hallucinations: As above Other Psychotic Symptoms: N/A Anxiety:06/23 Depression: 10/23 Current Medications Current Medications Amitriptyline HCl 25 mg HS PO Last administered on 08/26/16 21:19; Admin Dose 25 MG; Start 08/25/16 at 21:00 Buspirone HCl 10 mg 1430 PO Last administered on 08/27/16 14:07; Admin Dose 10 MG; Start 08/27/16 at 14:30 Buspirone HCl 20 mg BID PO Last administered on 08/26/16 08:52; Admin Dose 20 MG; Start 08/25/16 at 20:30; Stop 08/26/16 at 18:38; Status DC Buspirone HCl 20 mg DAILY PO Last administered on 08/27/16 08:11; Admin Dose 20 MG; Start 08/27/16 at 08:30 Diphenhydramine HCl 25 mg BID PO Last administered on 08/27/16 08:11; Admin Dose 25 MG; Start 08/25/16 at 20:30 Duloxetine HCl 120 mg DAILY PO Last administered on 08/27/16 08:11; Admin Dose 120 MG; Start 08/26/16 at 08:30 Famotidine 20 mg BID PO Last administered on 08/27/16 08:11; Admin Dose 20 MG; Start 08/26/16 at 20:30 Haloperidol 5 mg 08,14 PO Last administered on 08/27/16 14:06; Admin Dose 5 MG ; Start 08/27/16 at 08:00 Haloperidol 10 mg HS PO Last administered on 08/26/16 21:19; Admin Dose 10 MG; Start 08/26/16 at 21:00; Stop 08/27/16 at 16:28; Status DC Levothyroxine Sodium 150 mcg 0630 PO Last administered on 08/27/16 10:14; Admin Dose 150 MCG; Start 08/26/16 at 06:30 Montelukast Sodium 10 mg MORNING PO Last administered on 08/27/16 08:17; Admin Dose 10 MG; Start 08/26/16 at 08:30 Prazosin HCl 15 mg HS PO Last administered on 08/26/16 21:19; Admin Dose 15 MG ; Start 08/25/16 at 21:00 Mental Status Exam Vital Signs Vital Signs Date Time Temp Pulse Resp B/P Pulse Ox O2 Delivery O2 Flow Rate FiO2 08/27/16 10:00 36.3 103 16 140/95 Appearance: Neat/well groomed Attitude: Pleasant, Cooperative Behavior: No unusual behavior Affect: Well Modulated/Appropriate, Restricted Mood: Anxious, Fearful Thought Process/Associations: Logical/Sequential, Goal Directed Speech Production: Normal Speech Rate: Normal Speech Articulation: Normal Thought Content: Negativistic, Other (command auditory hallucinations to kill children) Danger to Self/Suicidal Ideati: Passive, Plan (denies), Intent (denies) Danger to Others: Thoughts/Plans of Harming Others Delusions: Paranoid (Endorses) Hallucinations: Auditory (Endorses), Visual (Endorses) Consciousness: Alert Orientation: Person, Place, Date, Situation Memory: Grossly Intact Estimate Intellectual Function: Above Average Basis for IQ estimate: Awareness current events, Word use/vocabulary, Educational history, Employment history Attention/Concentration & Cogn: Grossly Intact Cognitive Testing Method: Abstract Reasoning during interview Insight: Limited Judgement: Limited Result Diagram: 08/26/1651908/26/16519 Mental Health Plan The patient is a 31-year-old female with recent symptom exacerbation over the last 3 years of a chronic depressive disorder resulting in an atypical presentation of auditory, visual, and command hallucinations. In the emergency room the initial reports of her white blood cell count and platelets were in the critically low range. Oncology was consulted and she was given platelets and admitted to the intensive care unit. Over the past 24 hours all the results have come back essentially normal and the medical team believes that this was a laboratory error. The medicine service discharged her and she was admitted to the [facility] with complaint of command auditory hallucinations. The patient has been treated with essentially all of the atypical antipsychotics however she only had a brief course of treatment with Latuda. Attempts have been made in the past of using prazosin 5 mg daily along with her bedtime dosing to no improvement. The patient has been discontinued off the olanzapine out of concern for thrombocytopenia and Haldol is also considered possible contender if this is not a lab error. We discussed using an older typical agent such as Navane or Trilafon and the patient was agreeable. She reported that her outpatient team does not prescribe Clozaril and so this would not be an option. We discussed discontinuing the nighttime Haldol and replacing it with Navane. [place] I Major depressive disorder, recurrent, severe, with psychotic features. 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 [place] III 1. Recent platelet transfusion for presumed critically low platelets and white blood cell count. This appears to have been a laboratory error and the patient has been medically cleared for discharge 2. Asthma. 3. Fibromyalgia. [place] IV Moderate with worsening psychotic symptoms. [place] V Global Assessment of Functioning 30. Medications Treatments 1. The patient is admitted to the inpatient unit and will be provided a safe and secure environment. 2. The patient is denying current active suicidality and is not in need of a one-to-one at this time. She is agreeing to notify us should he have any acute suicidal or homicidal thoughts. 3. The patient is encouraged to participate with group and milieu activities. 4. The patient will be seen by the treatment team on a daily basis to assess symptoms, side effects and response to treatment. 5. We will continue with current medications except for Haldol cross taper. 6. Decrease haloperidol to 5 mg at 8 in the morning and 2:30. 7. Thiothixene 10 mg nightly as part of cross taper 8. We will hold on naproxen until it is clear that thrombocytopenia was lab error. 9. Eggcrate mattress for back pain. 10. Anticipated length of stay is 7-10 days. Artemio Perdomo MD August 27, 2016 17:24
--- NOTE | 2016-08-27 18:41 | NUR ---
NURS Note Day Orientation: person, place, time. Mood: Endorses depression 10/23, denies anxiety. Affect: Restricted. Thought Process/Content: Endorses SI with plan. Pt states, I would take drink a bunch of alcohol and pills. Describes seeing visions of herself killing herself with ETOH/pills and gun. Pt states that she does not have access to a gun. Endorses HI without plan. Endorses AV, VH. "I hear voices telling me to kill children. I see demons with purple hoodies walking around outside." Pt said she would not harm self or others while on the unit. Behavior: Pleasant, appropriate with staff and peers. Isolated in room much of day.
--- NOTE | 2016-08-27 18:42 | NUR ---
Observations 0900 - 2130 Pt was flat, guarded and withdrawn. Pt was isolative other than attending meals and groups. Pt speech and eye contact was good. Pt is pleasant and friendly upon approach. Pt was social with select peers and staff. Pt is polite and cooperative. Pt maintained behavior control throughout the shift. Pt attended community meeting and set a daily goal. Pt rated he mood 2/10, with 10 being the best. Pt attended arts and cra[employer]ullhorn group briefly. Pt attended meals in D.R. and ate 100% of meals. Pt ate snack. Pt used phone a few times. Pt was observed every 15 minutes throughout the shift as ordered.
--- NOTE | 2016-08-28 05:28 | NUR ---
Nursing Note 7pm to 7am Entertainment Director Pt visible in day room at start of shift. Affect blunted, mood neutral. Pt sat alone, appeared disinterested in her peers who were trying to make conversation. Reported back pain of 8/10, took Percocet at 2100 with good relief. Would prefer to take Ibuprofen instead of an opiate as she reports she does not take Percocet scheduled at home. Pt took HS meds and went to bed at 2200. Monitor with q 15 minute face checks for safety, location and accountability.
[2016-08-28 09:44] LABS: BASOPHILS % (AUTO) 0.3 % (0-3); EOSINOPHILS % (AUTO) 3.9 % (0-5); MONOCYTES % (AUTO) 7.5 % (4-12); Mean Corpuscular Hemoglobin 30.2 pg (27.0-35.0); Mean Corpuscular Volume 90.2 fL (81-100); NEUTROPHILS % (AUTO) 53.2 % (40-74); Platelet Count 261 bil/L (150-400)
[2016-08-28 10:00] VITALS: BP 143/99; PULSE 102; RESP 17
[2016-08-28] MEDS: diphenhydrAMINE 25 mg Capsule PO SCH ×2 (10:06→21:12)
[2016-08-28] MEDS: BusPIRone 15 mg Dividose Tablet PO SCH ×2 (10:07→14:45)
[2016-08-28] MEDS: DULoxetine 30 mg DR Capsule PO SCH (10:08)
[2016-08-28] MEDS: oxyCODONE-Acetamin 5-325 mg Tablet PO SCH ×2 (10:09→21:11)
--- NOTE | 2016-08-28 14:43 | NUR ---
Nursing: Day shift: 0700 through 1900 S: There are demons outside my room. I am paranoid about ____ Peer. I feel that he is involved with the clowns. I'm managing (said in response to how she is doing as she sat in TV room.) O: Sarita has spent much of the day in her room. She is out for meals and snacks. Also sat in TV area and read book in mid afternoon. Attended group briefly. Flat facial expression. Requested PRN medication twice. She had Percocet 5-325 at 1015 for general pain at 6/10. Effective. At 1100 pain is reduced to 3/10. At 1215 requested Tylenol for pain at 7/10. At 1430 pain was reduced to 5/10. Rated anxiety at 5/10, depression and suicidality at 7/10. Takes meds as scheduled. Alert. Oriented. Dressed casually. Appropriately. A: Psychotic symptoms. Acknowledges paranoia. P: Continue to assess for med effectiveness.
--- NOTE | 2016-08-28 17:35 | NUR ---
Observations 0900 - 2130 Pt affect and mood was flat, guarded and withdrawn. Pt was isolative other than attending meals and groups. Pt speech and eye contact was good. Pt is pleasant and friendly upon approach. Pt was social with select peers and staff. Pt is polite and cooperative. Pt maintained behavior control throughout the shift. Pt attended community meeting and set a daily goal. Pt rated her mood 4/10, with 10 being the best. Pt attended arts and craoboxo group briefly. Pt attended meals in D.R. and ate 100% of meals. Pt ate snack. Pt used phone a few times. Pt was observed reading her book in her room, TV area and D.R. at different times during the day. Pt was observed every 15 minutes throughout the shift as ordered.
--- NOTE | 2016-08-28 20:39 | PCM.PNPSY ---
Subjective Date of Service August 28, 2016 Subjective The patient reports that she slept well and noticed no side effects from the medication. She indicated that although she could feel the presence of the demons, she did not see any. The patient continued to report fear of acting negative thoughts regarding children. She also was still concerned that one of the patients on the unit may be involved in clown conspiracy but had no thought or intention of harming anyone. Since her labs had returned to and been consistently normal, she requested naproxen for pain. Sleep: 7 hours Appetite: "Okay" Suicidal and homicidal ideation: Denies suicidal ideation and reports ongoing fears of homicidal ideation but no intent or plan at this time. Auditory hallucinations: regarding negative thoughts regarding children Visual hallucinations: decreased, as above Other Psychotic Symptoms: N/A Anxiety:06/23 Depression: 10/23 Current Medications Current Medications Buspirone HCl 10 mg 1430 PO Last administered on 08/28/16 14:45; Admin Dose 10 MG; Start 08/27/16 at 14:30; Stop 08/28/16 at 16:27; Status DC Buspirone HCl 20 mg DAILY PO Last administered on 08/28/16 10:07; Admin Dose 20 MG; Start 08/27/16 at 08:30 Haloperidol 5 mg ,14 PO Last administered on 08/27/16 14:06; Admin Dose 5 MG ; Start 08/27/16 at 08:00; Stop 08/28/16 at 09:23; Status DC Haloperidol 10 mg HS PO Last administered on 08/26/16 21:19; Admin Dose 10 MG; Start 08/26/16 at 21:00; Stop 08/27/16 at 16:28; Status DC Naproxen 250 mg BIDWM PO Last administered on 08/28/16 17:19; Admin Dose 250 MG ; Start 08/28/16 at 17:30 Thiothixene 10 mg DAILY PO Last administered on 08/28/16 10:09; Admin Dose 10 MG; Start 08/28/16 at 09:25 Thiothixene 10 mg HS PO Last administered on 08/27/16 20:36; Admin Dose 10 MG; Start 08/27/16 at 21:00 Mental Status Exam Appearance: Neat/well groomed Attitude: Pleasant, Cooperative Behavior: No unusual behavior Affect: Well Modulated/Appropriate, Restricted Mood: Anxious, Fearful Thought Process/Associations: Logical/Sequential, Goal Directed Speech Production: Normal Speech Rate: Normal Speech Articulation: Normal Thought Content: Negativistic, Other (command auditory hallucinations to kill children) Danger to Self/Suicidal Ideati: Passive, Plan (denies), Intent (denies) Danger to Others: Thoughts/Plans of Harming Others Delusions: Paranoid (Endorses) Hallucinations: Auditory (Endorses), Visual (Denies) Consciousness: Alert Orientation: Person, Place, Date, Situation Memory: Grossly Intact Estimate Intellectual Function: Above Average Basis for IQ estimate: Awareness current events, Word use/vocabulary, Educational history, Employment history Attention/Concentration & Cogn: Grossly Intact Cognitive Testing Method: Abstract Reasoning during interview Insight: Limited Judgement: Limited Result Diagram: 08/28/16 0830 08/26/16 0520 Mental Health Plan The patient is a 31-year-old female with recent symptom exacerbation over the last 3 years of a chronic depressive disorder resulting in an atypical presentation of auditory, visual, and command hallucinations. In the emergency room the initial reports of her white blood cell count and platelets were in the critically low range. Oncology was consulted and she was given platelets and admitted to the intensive care unit. Her lab results have come back essentially normal and the medical team believes that this was a laboratory error. The medicine service discharged her and she was admitted to the [facility] with complaint of command auditory hallucinations. The patient has been treated with essentially all of the atypical antipsychotics however she only had a brief course of treatment with Latuda. Attempts have been made in the past of using prazosin 5 mg daily along with her bedtime dosing to no improvement. The patient has been discontinued off the olanzapine out of concern for thrombocytopenia and Haldol is also considered possible contender if this is not a lab error. We discussed using an older typical agent such as Navane or Trilafon and the patient was agreeable. She reported that her outpatient team does not prescribe Clozaril and so this would not be an option. The patient had no negative response to thiothixene and reported some decrease in visual hallucinations. She was agreeable to replacing daytime haloperidol with thiothixene. [place] Butler I Major depressive disorder, recurrent, severe, with psychotic features. 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 Butler III 1. Recent platelet transfusion for presumed critically low platelets and white blood cell count. This appears to have been a laboratory error and the patient has been medically cleared for discharge 2. Asthma. 3. Fibromyalgia. [place] IV Moderate with worsening psychotic symptoms and concern for safety in the home. [place] V Global Assessment of Functioning 30. Medications Treatments 1. The patient is admitted to the inpatient unit and will be provided a safe and secure environment. 2. The patient is denying current active suicidality and is not in need of a one-to-one at this time. She is agreeing to notify us should he have any acute suicidal or homicidal thoughts. 3. The patient is encouraged to participate with group and milieu activities. 4. The patient will be seen by the treatment team on a daily basis to assess symptoms, side effects and response to treatment. 5. We will continue with current medications except for Haldol cross taper. 6. Discontinue haloperidol 7. Thiothixene 10 mg twice daily 8. Naproxen 250mg po bid. 9. Eggcrate mattress for back pain. 10. Anticipated length of stay is 7-10 days. Artemio Perdomo MD August 28, 2016 20:38
[2016-08-28] MEDS ORDERED: BusPIRone 15 mg Dividose Tablet PO ONE (21:00)
[2016-08-28] MEDS: LORazepam 1 mg Tablet PO PRN (22:58)
--- NOTE | 2016-08-29 05:50 | NUR ---
Nursing Noc Pt presents with flat, depressed affect. No acute psychosis or SI this shift. Delayed onset of sleep. She requested and received Ativan 1mg po prn @ 2258 for sleep promotion. Medication mildly effective. Broken sleep of 4 hours.
[2016-08-29] MEDS: BusPIRone 15 mg Dividose Tablet PO SCH ×2 (07:53→15:05)
[2016-08-29] MEDS: diphenhydrAMINE 25 mg Capsule PO SCH ×2 (07:54→20:58)
[2016-08-29] MEDS: DULoxetine 30 mg DR Capsule PO SCH (08:00)
[2016-08-29] MEDS: oxyCODONE-Acetamin 5-325 mg Tablet PO SCH ×2 (08:30→20:58)
--- NOTE | 2016-08-29 13:09 | PCM.PNPSY ---
Subjective Date of Service August 29, 2016 Subjective Although the patient did not sleep well last night, she reports that she is "a little bit better, the windows aren't freaking me out as much, [peer] is not feeling like he's part of the clowns [conspiracy], and I feel the presence of the demons but I didn't see them." She denies side effects from medications. She denies feeling fatigued. We discussed her complex case and limited response to medication and that she may benefit from Cytochrome p450 testing to assess her enzyme status. Patient reports temazepam has been helpful with insomnia in the past. Sleep: 4 hours Appetite: "Okay" Suicidal and homicidal ideation: reports passive suicidal ideation in hospital, but not sure about safety in the community with plan to drink and overdose. Decreased concern of harm to children with no intent or plan at this time. Auditory hallucinations: man is still issuing commands in her head, but no other voices. Visual hallucinations: decreased, as above Other Psychotic Symptoms: N/A Anxiety: 07/24, yesterday 06/23 Depression: 10/23, yesterday 10/23 Current Medications Current Medications Buspirone HCl 10 mg 1430 PO Last administered on 08/28/16 14:45; Admin Dose 10 MG; Start 08/27/16 at 14:30; Stop 08/28/16 at 16:27; Status DC Buspirone HCl 10 mg HS ONCE PO Last administered on 08/28/16 21:12; Admin Dose 10 MG; Start 08/28/16 at 21:00; Stop 08/28/16 at 21:01; Status DC Naproxen 250 mg BIDWM PO Last administered on 08/29/16 07:50; Admin Dose 250 MG ; Start 08/28/16 at 17:30 Thiothixene 10 mg DAILY PO Last administered on 08/29/16 07:51; Admin Dose 10 MG; Start 08/28/16 at 09:25 Thiothixene 10 mg HS PO Last administered on 08/28/16 21:11; Admin Dose 10 MG; Start 08/27/16 at 21:00 Mental Status Exam Appearance: Neat/well groomed Attitude: Pleasant, Cooperative Behavior: No unusual behavior Affect: Well Modulated/Appropriate, Restricted Mood: Depressed, Anxious Thought Process/Associations: Logical/Sequential, Goal Directed Speech Production: Normal Speech Rate: Normal Speech Articulation: Normal Thought Content: Negativistic Danger to Self/Suicidal Ideati: Passive, Plan (denies in hospital but unsure on discharge.), Intent (denies in hospital, unsure in community) Danger to Others: Thoughts/Plans of Harming Others Delusions: Paranoid (Endorses) Hallucinations: Auditory (Endorses), Visual (Endorses, but decreased) Consciousness: Alert Orientation: Person, Place, Date, Situation Memory: Grossly Intact Estimate Intellectual Function: Above Average Basis for IQ estimate: Awareness current events, Word use/vocabulary, Educational history, Employment history Attention/Concentration & Cogn: Grossly Intact Cognitive Testing Method: Abstract Reasoning during interview Insight: Limited Judgement: Limited Result Diagram: 08/28/16 0830 08/26/16 0520 Mental Health Plan The patient is a 31-year-old female with recent symptom exacerbation over the last 3 years of a chronic depressive disorder resulting in an atypical presentation of auditory, visual, and command hallucinations. In the emergency room the initial reports of her white blood cell count and platelets were in the critically low range. Oncology was consulted and she was given platelets and admitted to the intensive care unit. Her lab results have come back essentially normal and the medical team believes that this was a laboratory error. The medicine service discharged her and she was admitted to the [facility] with complaint of command auditory hallucinations. The patient has been treated with essentially all of the atypical antipsychotics however she only had a brief course of treatment with Latuda. Attempts have been made in the past of using prazosin 5 mg daily along with her bedtime dosing to no improvement. The patient has been discontinued off the olanzapine out of concern for thrombocytopenia and Haldol is also considered possible contender if this is not a lab error. We discussed using an older typical agent such as Navane or Trilafon and the patient was agreeable. She reported that her outpatient team does not prescribe Clozaril and so this would not be an option. The patient reports some improvement with thiothixene and no side effects, but is experiencing some insomnia and is agreeable to temazepam. [place] I Major depressive disorder, recurrent, severe, with psychotic features. [place] II Borderline personality disorder versus traits. [place] III 1. Recent platelet transfusion for presumed critically low platelets and white blood cell count. This appears to have been a laboratory error and the patient has been medically cleared for discharge 2. Asthma. 3. Fibromyalgia. [place] IV Moderate with worsening psychotic symptoms and concern for safety in the home. [place] V Global Assessment of Functioning 30. Medications Treatments 1. The patient is admitted to the inpatient unit and will be provided a safe and secure environment. 2. The patient is denying current active suicidality and is not in need of a one-to-one at this time. She is agreeing to notify us should he have any acute suicidal or homicidal thoughts. 3. The patient is encouraged to participate with group and milieu activities. 4. The patient will be seen by the treatment team on a daily basis to assess symptoms, side effects and response to treatment. 5. We will continue with current medications. 6. Temazepam 15mg po nightly prn insomnia, may repeat x 1 7. Review cytochrome p450 availability. 8. Anticipated length of stay is 7-10 days. Artemio Perdomo MD August 29, 2016 13:09 Artemio Perdomo MD August 29, 2016 13:09
[2016-08-29 14:05] VITALS: BP 131/88; PULSE 92; RESP 16
--- NOTE | 2016-08-29 18:46 | NUR ---
Obs Dayshift Pt spent the first part of the shift in bed, then got up and spent the last half in the DR coloring, drawing, during meals. Pt declined to attend the group in the GR and stayed in the DR to color. Pt is quite, reserved, isolating. Pt engages very little w/ peers and only when approached. Pt spends a lot of time watching others. Ok ADL's, Good meals
--- NOTE | 2016-08-30 04:46 | NUR ---
nursing, nights, 11-7 s/o- has appeared to sleep after 2200 during q 15 minute assessments. a- no apparent distress. p- monitor behavior/emotional state, quality, times and amount of sleep, use and effect of medication.
[2016-08-30 08:19] LABS: PNH Viability 86% (.)
[2016-08-30] MEDS: diphenhydrAMINE 25 mg Capsule PO SCH ×2 (09:23→21:17)
[2016-08-30] MEDS: BusPIRone 15 mg Dividose Tablet PO SCH ×2 (09:23→14:02)
[2016-08-30] MEDS: DULoxetine 30 mg DR Capsule PO SCH (09:24)
[2016-08-30] MEDS: oxyCODONE-Acetamin 5-325 mg Tablet PO SCH (09:25)
[2016-08-30 13:10] VITALS: BP 121/83; PULSE 110
--- NOTE | 2016-08-30 16:35 | NUR ---
Nursing Notes [id number] S: "Afraid of the windows because the seagulls can look through and see me. The seagulls are on google and giving the clowns intel. Children give intel to the clowns as well and I was being told to kill the children and I dont want to do that. " O: Pt cooperative, quiet and participating in group. A: Pt denies having any auditory or visual hallucinations. Pt having delusions. She states she feels calmer at this time. Pt is well kept, her speech is even and clear. P: Monitor for safety and response to treatment. Follow plan of care.
--- NOTE | 2016-08-30 18:01 | NUR ---
[facility] Day Shift Pt maintained behavioral control throughout the shift. Pt affect appears flat, sad. Pt spends most of the shift resting in her room, sitting quietly/coloring in the dining room, and occasionally participating in unit activities. Pt is appropriate with staff and peers when active on the unit, but is not overly social. Pt attended community meeting and participated in group activities throughout the shift. Pt declined to accompany staff onto the patio in the AM. Pt attended all meals and ate approx 100% of all meals.
--- NOTE | 2016-08-30 19:04 | NUR ---
Perishable Freight Inspector/Counselor: S: "I'm kristine feeling like there is impending doom today." O: Patient slept 7+ hours last night as per staff. She reports that her suicidal thoughts are "a little bit better" today and the homicidal thoughts are "still there." She also reports that the voices are "calming down, not as bad, and the voices are coming less and less." The visual hallucinations are "not as much. I'm worried about sea gulls because they have [employer] technology." Depression is 7/10 and anxiety is 7/10. A: Patient is cooperative, anxious, depressed, anxious, paranoid, limited insight, limited judgment. P: Follow the care plan, coordinate with out-patient providers.
--- NOTE | 2016-08-30 21:04 | PCM.PNPSY ---
Subjective Date of Service August 30, 2016 Subjective The patient reported that she is "feeling like there's impending doom," although she states that she is feeling "a little better." She reports that AH and VH of demons have improved and she only senses the presence of demons rather than seeing them. She states that her paranoia has decreased and it is easier to look outside. She denies side effects. Sleep: 7+ hours Appetite: Fine Suicidal and homicidal ideation: minimal SI, no plan or intent, reports decreased fear of hurting anyone Auditory hallucinations: decreased Visual hallucinations: decreased Other Psychotic Symptoms: N/A Anxiety: 10/23 Depression: 10/23 Current Medications Current Medications Buspirone HCl 10 mg HS ONCE PO Last administered on 08/28/16 21:12; Admin Dose 10 MG; Start 08/28/16 at 21:00; Stop 08/28/16 at 21:01; Status DC Buspirone HCl 20 mg 1430 PO Last administered on 08/30/16 14:02; Admin Dose 20 MG; Start 08/29/16 at 14:30 Levothyroxine Sodium 150 mcg 0630 PO Last administered on 08/30/16 07:53; Admin Dose 150 MCG; Start 08/30/16 at 06:30 Temazepam 15 mg HS PRN PO Last administered on 08/29/16 21:05; Admin Dose 15 MG; Start 08/29/16 at 13:25 Mental Status Exam Vital Signs Vital Signs Date Time Temp Pulse Resp B/P Pulse Ox O2 Delivery O2 Flow Rate FiO2 08/30/16 13:10 35.6 110 121/83 Appearance: Neat/well groomed Attitude: Pleasant, Cooperative Behavior: No unusual behavior Affect: Well Modulated/Appropriate, Restricted Mood: Depressed, Anxious Thought Process/Associations: Logical/Sequential, Goal Directed Speech Production: Normal Speech Rate: Normal Speech Articulation: Normal Thought Content: Negativistic Danger to Self/Suicidal Ideati: Passive, Plan (denies in hospital but unsure on discharge.), Intent (denies in hospital, unsure in community) Danger to Others: Thoughts/Plans of Harming Others (decreased) Delusions: Paranoid (Endorses) Hallucinations: Auditory (Endorses), Visual (Endorses, but decreased) Consciousness: Alert Orientation: Person, Place, Date, Situation Memory: Grossly Intact Estimate Intellectual Function: Above Average Basis for IQ estimate: Awareness current events, Word use/vocabulary, Educational history, Employment history Attention/Concentration & Cogn: Grossly Intact Cognitive Testing Method: Abstract Reasoning during interview Insight: Limited Judgement: Limited Result Diagram: 08/28/16 0830 08/26/16 0520 Mental Health Plan The patient is a 31-year-old female with recent symptom exacerbation over the last 3 years of a chronic depressive disorder resulting in an atypical presentation of auditory, visual, and command hallucinations. In the emergency room the initial reports of her white blood cell count and platelets were in the critically low range. Oncology was consulted and she was given platelets and admitted to the intensive care unit. Her lab results have come back essentially normal and the medical team believes that this was a laboratory error. The medicine service discharged her and she was admitted to the [facility] with complaint of command auditory hallucinations. The patient has been treated with essentially all of the atypical antipsychotics however she only had a brief course of treatment with Latuda. Attempts have been made in the past of using prazosin 5 mg daily along with her bedtime dosing to no improvement. The patient has been discontinued off the olanzapine out of concern for thrombocytopenia and Haldol is also considered possible contender if this is not a lab error. We discussed using an older typical agent such as Navane or Trilafon and the patient was agreeable. She reported that her outpatient team does not prescribe Clozaril and so this would not be an option. The patient continues to report improvement in her symptoms with thiothixene. She denies side effects. She reports sleep has improved. [place] I Major depressive disorder, recurrent, severe, with psychotic features. [place] II Borderline personality disorder versus traits. [place] III 1. Recent platelet transfusion for presumed critically low platelets and white blood cell count. This appears to have been a laboratory error and the patient has been medically cleared for discharge 2. Asthma. 3. Fibromyalgia. [place] IV Moderate with worsening psychotic symptoms and concern for safety in the home. [place] V Global Assessment of Functioning 35. Medications Treatments 1. The patient is admitted to the inpatient unit and will be provided a safe and secure environment. 2. The patient is denying current active suicidality and is not in need of a one-to-one at this time. She is agreeing to notify us should he have any acute suicidal or homicidal thoughts. 3. The patient is encouraged to participate with group and milieu activities. 4. The patient will be seen by the treatment team on a daily basis to assess symptoms, side effects and response to treatment. 5. We will continue with current medications. 6. Temazepam 15mg po nightly prn insomnia, may repeat x 1 7. Review cytochrome p450 availability. 8. Anticipated length of stay is 7-10 days. Artemio Perdomo MD August 30, 2016 21:04
--- NOTE | 2016-08-30 22:24 | NUR ---
NURS Note Evening Mood: Endorses depression /10, anxiety 09/23. Affect: Well-modulated Behavior: Pt watching TV, visited with in [facility]. Thought Content/Process: "The demons listen to the clowns who have a conspiracy against me." Endorses AH. Denies VH. Endorses SI with plan (ETOH + pills, gun). Endorses HI with plan (kill children with a knife). Pt expresses that she does not want to hurt children but worries about being out of control when she is psychotic. PRN/NURS Notes: PRN temazepam 15 mg for sleep.
[2016-08-31] MEDS: oxyCODONE-Acetamin 5-325 mg Tablet PO PRN ×2 (03:46→21:08)
--- NOTE | 2016-08-31 04:46 | NUR ---
Nursing Noc [id number] Pt noted to have broken sleep through the night. Noted to be first asleep at 2245 and awoke at 0045, again at 0200 to 0345. Patient reports continued intrusive thoughts of killing her nieces and other children. Denies visual hallucinations, rates anxiety at 6/10. Monitor behavior/emotional state, quality, times and amount of sleep, use and effect of medication.
[2016-08-31] MEDS: BusPIRone 15 mg Dividose Tablet PO SCH ×2 (09:18→13:45)
[2016-08-31] MEDS: diphenhydrAMINE 25 mg Capsule PO SCH ×2 (09:18→21:08)
[2016-08-31] MEDS: DULoxetine 30 mg DR Capsule PO SCH (09:19)
[2016-08-31 10:03] VITALS: BP 121/75; PULSE 123; RESP 17
--- NOTE | 2016-08-31 12:46 | NUR ---
Nursing: Day shift: 0700 to 1500 Sarita has spent about 50 % of the shift in her room. Out for meals and is watching TV and doing color by number [place]. Remains with flat facial expression. Has not requested pain or anxiety medication this shift. Commented that she is tired since she didn't get to sleep until 0200. Flat facial expression. Takes all scheduled meds without difficulty. Denies Visual hallucinations. Demeliseo: "I know you folks don't think they are real but I feel that they are. I don't see them, just feel them. I still hear voices telling me to hurt children but much less so than when I came in. Now only 1-2 x per hour instead of every minute before.Verbally stoill contracts for " Describes same reduction in suicidal thinking. Did not rate depression or anxiety. States she still thinks that peer Ganesh is still with the clowns. A: Improving. But still in distress. P: Continue to observe for safety and encourage participation. Addendum: 08/31/16 at 1446 by VICENTE BRAGA RN [id number]: Sarita states Ativan reduced anxiety from 6/10 to 3/10. Present depression level is 6/10.
[2016-08-31] MEDS: LORazepam 1 mg Tablet PO PRN (13:44)
--- NOTE | 2016-08-31 18:38 | NUR ---
Commercial Sales Representative/Counselor: S: "I still think Ganesh works for the clowns. The clowns are in charge of this dimension." O: Patient only slept 3.75+ hours last night as per staff. She reports that her suicidal thoughts are "a little bit better" today and the homicidal thoughts are "not there right now." She also reports that she hears the voices a few times an hour and not as bad. The visual hallucinations are "not as much." Depression is 6/10 and anxiety is 3/10. A: Patient is cooperative, anxious, depressed, paranoid, delusional at times, limited insight, limited judgment. P: Follow care plan, coordinate with out-patient providers.
--- NOTE | 2016-08-31 18:58 | NUR ---
Observations [id number] Pt was asleep upon start of shift. She spent more time in the common area today, watching TV. She did not express an interest in attending group. Pt attended all meals, eating 100%. She watched a movie in the evening. She was observed every 15 minutes of shift as directed.
--- NOTE | 2016-08-31 20:21 | PCM.PNPSY ---
Subjective Date of Service August 31, 2016 Subjective The patient reported that she thought the "feeling of impending doom" had reduced somewhat. She also reported that her suicidal and homicidal ideation had decreased. She reports that AH and VH of demons have improved and she only senses the presence of demons rather than seeing them and that she has been practicing looking outside with reduced paranoia. She denies side effects. Sleep: 3.75+ hours Appetite: Fine Suicidal and homicidal ideation: minimal SI, no plan or intent, reports decreased fear of hurting anyone else, both down to a couple of times an hour from every 1-2 minutes on admission. Auditory hallucinations: decreased to a few times per hour Visual hallucinations: denies, "not seeing but feeling" presence of demons. Other Psychotic Symptoms: N/A Anxiety: 06/23, yesterday 10/23 Depression: 09/23, yesterday 10/23 Current Medications Current Medications Levothyroxine Sodium 150 mcg 0630 PO Last administered on 08/31/16 09:17; Admin Dose 150 MCG; Start 08/30/16 at 06:30 Oxycodone/ Acetaminophen 1 tab BID PRN PO Last administered on 08/31/16 03:46 ; Admin Dose 1 TAB; Start 08/30/16 at 17:10 Mental Status Exam Appearance: Neat/well groomed Attitude: Pleasant, Cooperative Behavior: No unusual behavior Affect: Well Modulated/Appropriate, Restricted Mood: Depressed, Anxious Thought Process/Associations: Logical/Sequential, Goal Directed Speech Production: Normal Speech Rate: Normal Speech Articulation: Normal Thought Content: Negativistic Danger to Self/Suicidal Ideati: Passive, Plan (denies in hospital but unsure on discharge.), Intent (denies in hospital, unsure in community) Danger to Others: Thoughts/Plans of Harming Others (decreased) Delusions: Paranoid (Endorses) Hallucinations: Auditory (Decreased), Visual (Endorses, but decreased) Consciousness: Alert Orientation: Person, Place, Date, Situation Memory: Grossly Intact Estimate Intellectual Function: Above Average Basis for IQ estimate: Awareness current events, Word use/vocabulary, Educational history, Employment history Attention/Concentration & Cogn: Grossly Intact Cognitive Testing Method: Abstract Reasoning during interview Insight: Good Judgement: Good Result Diagram: 08/28/16 0830 08/26/16 0520 Mental Health Plan The patient is a 31-year-old female with recent symptom exacerbation over the last 3 years of a chronic depressive disorder resulting in an atypical presentation of auditory, visual, and command hallucinations. In the emergency room the initial reports of her white blood cell count and platelets were in the critically low range. Oncology was consulted and she was given platelets and admitted to the intensive care unit. Her lab results have come back essentially normal and the medical team believes that this was a laboratory error. The medicine service discharged her and she was admitted to the [facility] with complaint of command auditory hallucinations. The patient has been treated with essentially all of the atypical antipsychotics however she only had a brief course of treatment with Latuda. Attempts have been made in the past of using prazosin 5 mg daily along with her bedtime dosing to no improvement. The patient has been discontinued off the olanzapine out of concern for thrombocytopenia and Haldol is also considered possible contender if this is not a lab error. We discussed using an older typical agent such as Navane or Trilafon and the patient was agreeable. She reported that her outpatient team does not prescribe Clozaril and so this would not be an option. The patient continues to report improvement in her symptoms with thiothixene. She denies side effects. She reports sleep has improved. She feels she may be stable enough for discharge in next few days depending on whether homicidal ideation abates. [place] Benson I Major depressive disorder, recurrent, severe, with psychotic features. 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 Benson III 1. Recent platelet transfusion for presumed critically low platelets and white blood cell count. This appears to have been a laboratory error and the patient has been medically cleared for discharge 2. Asthma. 3. Fibromyalgia. Benson IV Moderate with worsening psychotic symptoms and concern for safety in the home. [place] V Global Assessment of Functioning 35. Medications Treatments 1. The patient is admitted to the inpatient unit and will be provided a safe and secure environment. 2. The patient is denying current active suicidality and is not in need of a one-to-one at this time. She is agreeing to notify us should he have any acute suicidal or homicidal thoughts. 3. The patient is encouraged to participate with group and milieu activities. 4. The patient will be seen by the treatment team on a daily basis to assess symptoms, side effects and response to treatment. 5. We will continue with current medications. 6. Temazepam 15mg po nightly prn insomnia, may repeat x 1 7. Review cytochrome p450 availability. 8. Anticipated length of stay is 3-5 days. Artemio Perdomo MD August 31, 2016 20:21
--- NOTE | 2016-08-31 21:58 | NUR ---
Nurses PRN Patient requested and received Percocet 1 tab and Restoril 15mg for pain and sleep,night club manager to assess response.
--- NOTE | 2016-09-01 05:00 | NUR ---
Nursing Noc Pt pleasant and reserved this shift watching TV, noted good insight to needs of other patients, cooperative and pleasant. Noted to be first asleep at 2245 and remained asleep throughout the shift. Continuing to monitor mood behavior and emotional state. Q15 minute safety checks as ordered. CP
[2016-09-01] MEDS: diphenhydrAMINE 25 mg Capsule PO SCH ×2 (08:11→21:39)
[2016-09-01] MEDS: BusPIRone 15 mg Dividose Tablet PO SCH ×2 (08:12→14:06)
[2016-09-01] MEDS: DULoxetine 30 mg DR Capsule PO SCH (08:12)
--- NOTE | 2016-09-01 12:42 | NUR ---
NURS Note Day Orientation: person, place, time Mood: depression 10/23; anxiety 08/23 Affect: restricted Thought Process/Content: "I feel less psychotic, more in control." Pt continues to endorse SI with visions of killing herself with alcohol and pills; endorses HI with visions of and male voice telling her to kill children. Pt states that she can stay safe while on the unit. Pt states that she feels that she would be safe to herself and others if she were to leave the hospital r/t increased self-control. Behavior: Pt coloring in common area and resting in room much of shift. Interacts appropriately with staff and peers.
--- NOTE | 2016-09-01 16:18 | NUR ---
Airway Controller/Counselor: S: "I don't see the demons anymore." O: Patient only slept 6.75+ hours last night as per staff. She reports that S/I and H/I are about the same as yesterday She also reports that she hears the voices about twice an hour and not as bad. Depression is 7/10 and anxiety is 5/10. A: Patient is cooperative, anxious, depressed, paranoid at times, limited insight, limited judgment. P: Follow care plan, coordinate with out-patient providers.
--- NOTE | 2016-09-01 16:28 | PCM.PNPSY ---
Subjective Date of Service September 01, 2016 Subjective The patient reported that last night she felt that the clowns had sent the SWAT team to get the patient. She reported that she was really tired today but slept okay. She indicated that although her negative thoughts and hallucinations had dropped to twice per hour, but felt that she was not ready for discharge at this time. She denies side effects. Sleep: 6.75+ hours Appetite: Fine Suicidal and homicidal ideation: minimal SI, plan but no intent, reports decreased fear of hurting anyone else, both down to a couple of times an hour from every 1-2 minutes on admission. Auditory hallucinations: decreased to twice per hour Visual hallucinations: denies, "not seeing but feeling" presence of demons. Other Psychotic Symptoms: N/A Anxiety: 08/23, yesterday 08/23 Depression: 10/23, yesterday 09/23 Current Medications Current Medications Oxycodone/ Acetaminophen 1 tab BID PRN PO Last administered on 08/31/16t 21:08 ; Admin Dose 1 TAB; Start 08/30/16 at 17:10 Mental Status Exam Appearance: Neat/well groomed Attitude: Pleasant, Cooperative Behavior: No unusual behavior Affect: Well Modulated/Appropriate, Restricted Mood: Depressed, Anxious Thought Process/Associations: Logical/Sequential, Goal Directed Speech Production: Normal Speech Rate: Normal Speech Articulation: Normal Thought Content: Negativistic Danger to Self/Suicidal Ideati: Passive, Plan (denies in hospital but unsure on discharge.), Intent (denies in hospital, unsure in community) Danger to Others: Thoughts/Plans of Harming Others (decreased) Delusions: Paranoid (Endorses) Hallucinations: Auditory (Decreased), Visual (Endorses, but decreased) Consciousness: Alert Orientation: Person, Place, Date, Situation Memory: Grossly Intact Estimate Intellectual Function: Above Average Basis for IQ estimate: Awareness current events, Word use/vocabulary, Educational history, Employment history Attention/Concentration & Cogn: Grossly Intact Cognitive Testing Method: Abstract Reasoning during interview Insight: Good Judgement: Good Result Diagram: 08/28/16 0830 08/26/16 0520 Mental Health Plan The patient is a 31-year-old female with recent symptom exacerbation over the last 3 years of a chronic depressive disorder resulting in an atypical presentation of auditory, visual, and command hallucinations. In the emergency room the initial reports of her white blood cell count and platelets were in the critically low range. Oncology was consulted and she was given platelets and admitted to the intensive care unit. Her lab results have come back essentially normal and the medical team believes that this was a laboratory error. The medicine service discharged her and she was admitted to the [facility] with complaint of command auditory hallucinations. The patient has been treated with essentially all of the atypical antipsychotics however she only had a brief course of treatment with Latuda. Attempts have been made in the past of using prazosin 5 mg daily along with her bedtime dosing to no improvement. The patient has been discontinued off the olanzapine out of concern for thrombocytopenia and Haldol is also considered possible contender if this is not a lab error. We discussed using an older typical agent such as Navane or Trilafon and the patient was agreeable. She reported that her outpatient team does not prescribe Clozaril and so this would not be an option. The patient continues to report improvement in her symptoms with thiothixene though no improvement over yesterday and had episode of paranoia yesterday. She denies side effects. She reports sleep has improved. She feels she may be stable enough for discharge in next few days depending on whether homicidal ideation abates. [place] Pearson I Major depressive disorder, recurrent, severe, with psychotic features. Pearson II Borderline personality disorder versus traits. Pearson III 1. Recent platelet transfusion for presumed critically low platelets and white blood cell count. This appears to have been a laboratory error and the patient has been medically cleared for discharge 2. Asthma. 3. Fibromyalgia. Pearson IV Moderate with worsening psychotic symptoms and concern for safety in the home. [place] V Global Assessment of Functioning 35. Medications Treatments 1. The patient is admitted to the inpatient unit and will be provided a safe and secure environment. 2. The patient is denying current active suicidality and is not in need of a one-to-one at this time. She is agreeing to notify us should he have any acute suicidal or homicidal thoughts. 3. The patient is encouraged to participate with group and milieu activities. 4. The patient will be seen by the treatment team on a daily basis to assess symptoms, side effects and response to treatment. 5. Consider increasing thiothixene to 10mg daily and 15mg nightly. 6. Temazepam 15mg po nightly prn insomnia, may repeat x 1 7. Review cytochrome p450 availability. 8. Anticipated length of stay is 3-5 days. Artemio Perdomo MD September 01, 2016 16:28
[2016-09-01 17:33] VITALS: BP 145/93; PULSE 128; RESP 16
--- NOTE | 2016-09-01 18:44 | NUR ---
[facility] Day Shift Pt affect and behavior unchanged from previous shifts. Pt maintained behavioral control throughout the shift. Pt affect appears flat, sad. Pt spends most of the shift resting in her room, sitting quietly/coloring in the dining room, and occasionally participating in unit activities. Pt is appropriate with staff and peers when active on the unit, but is not overly social. Pt attended all meals and ate approx 100% of all meals.
[2016-09-01] MEDS: oxyCODONE-Acetamin 5-325 mg Tablet PO PRN (21:40)
--- NOTE | 2016-09-01 21:59 | NUR ---
NURSING NOTE [id number] Mood: "okay" Affect: flat, pleasant and cooperative upon approach Behavior: spent most of the evening watching TV. Very limited interaction w/peers. Med compliant. Thought processes: still endorsing male voice off and on telling her to hurt children, passive SI w/no intent and agrees to notify staff if this changes. Rates depression and anxiety at 5/10.
--- NOTE | 2016-09-02 04:38 | NUR ---
Nursing note: director social welfare/ sleep Patient noted to be awake briefly at midnight, had a snack and returned to bed. Patient appears to be sleeping on subsequent safety checks during the night without further complaints.
[2016-09-02] MEDS: BusPIRone 15 mg Dividose Tablet PO SCH ×2 (08:46→13:15)
[2016-09-02] MEDS: DULoxetine 30 mg DR Capsule PO SCH (08:46)
[2016-09-02] MEDS: diphenhydrAMINE 25 mg Capsule PO SCH ×2 (08:46→20:31)
[2016-09-02 09:26] LABS: BASOPHILS % (AUTO) 1.3 % (0-3); EOSINOPHILS % (AUTO) 3.4 % (0-5); MONOCYTES % (AUTO) 10.3 % (4-12); Mean Corpuscular Hemoglobin 30.6 pg (27.0-35.0); Mean Corpuscular Volume 91.7 fL (81-100); NEUTROPHILS % (AUTO) 48.5 % (40-74); Platelet Count 235 bil/L (150-400)
--- NOTE | 2016-09-02 14:22 | NUR ---
Nursing Day Shift- S- "We talked about Sunday." (for discharge) O- Pt. was awake for breakfast. She had slept well per report. She appeared flat, and sat near peers with minimal interaction. Pt. was able to contract for safety. she was reminded that part of her discharge day decision was when she felt safe to go. She expressed an understanding of her medications, and their indications. A- Appears at ease on the unit, spent most of the day watching TV. P- Cont. BHTP.
[2016-09-02 15:28] VITALS: BP 114/78; PULSE 113; RESP 16
--- NOTE | 2016-09-02 15:52 | PCM.PNPSY ---
Subjective Date of Service September 02, 2016 Subjective I spent 30 minutes both reviewing treatment plan with clinical team, interviewing the patient and providing supportive/educational psychotherapy. I spent more than 50% of the time counseling the patient. I reviewed the treatment plan with the patient and discussed options available including the potential risks, benefits and side effects. Sarita reports a marked improvement in thought organization and mood stability. Staff reports that she has been active and participating well in one-to-one unit and group activities. She slept 7 hours and denies manic symptoms review and her reports a resolution of homicidal ideation. She reports that her depression is still bad a 7 out of 10 and her anxiety is 5 out of 10. She reports having auditory hallucinations 2 times per hour and is requesting an increase in Navane from 20-30 mg. She denies suicidal ideation and states now she is more passively suicidal but has known plan and no intent. She reports being paranoid and feeling that there is a SWAT team out to get her for having previous suicidal ideation. She can feel incensed demons but no longer sees or hears. She denies medication side effects. Patient was able to identify her medications and what they were used to treat. Mental Status Exam Vital Signs Vital Signs Date Time Temp Pulse Resp B/P Pulse Ox O2 Delivery O2 Flow Rate FiO2 09/02/16 15:28 36.1 113 16 114/78 Appearance: Neat/well groomed Attitude: Pleasant, Cooperative Behavior: No unusual behavior Affect: Well Modulated/Appropriate, Restricted Mood: Depressed, Anxious Thought Process/Associations: Logical/Sequential, Goal Directed Speech Production: Normal Speech Rate: Normal Speech Articulation: Normal Thought Content: Negativistic Danger to Self/Suicidal Ideati: Passive, Plan (denies in hospital but unsure on discharge.), Intent (denies in hospital, unsure in community) Danger to Others: Thoughts/Plans of Harming Others (decreased) Delusions: Paranoid (Endorses) Hallucinations: Auditory (Decreased), Visual (Endorses, but decreased) Consciousness: Alert Orientation: Person, Place, Date, Situation Memory: Grossly Intact Estimate Intellectual Function: Above Average Basis for IQ estimate: Awareness current events, Word use/vocabulary, Educational history, Employment history Attention/Concentration & Cogn: Grossly Intact Cognitive Testing Method: Abstract Reasoning during interview Insight: Good Judgement: Good Result Diagram: 09/02/1658 09/02/16857 Mental Health Plan The patient is a 31-year-old female with recent symptom exacerbation over the last 3 years of a chronic depressive disorder resulting in an atypical presentation of auditory, visual, and command hallucinations. In the emergency room the initial reports of her white blood cell count and platelets were in the critically low range. Oncology was consulted and she was given platelets and admitted to the intensive care unit. Over the past 24 hours all the results have come back essentially normal and the medical team believes that this was a laboratory error. The medicine service we will be discharging her today and I am recommending admission to our unit to deal with complaint of command auditory hallucinations. An MRI with and without contrast was obtained last year and did not demonstrate any significant abnormalities, and it is felt that her symptoms are primarily psychiatric in origin. She has been admitted multiple times to [facility] and to our care center. She has also been admitted to multiple different hospitals in the area. She attempts to treat the auditory hallucinations with high doses of multiple antipsychotics. When she is here and under observation we have not noticed a significant decrease in the auditory hallucinations no matter what neuroleptic or dose is used. She states that she sees Dr. Carissa Partida, a psychiatrist in [place]. She reports Dr. Partida increased the Haldol from 2 mg twice a day to 5 mg 3 times a day and added Zyprexa 5 twice a day. The patient had a brief decrease in symptoms for 1-2 days, and then again had a recurrence of symptoms. She currently reports manical clowns master-minding her demise. She feels that there are demons's waiting around the hospital. She stated this morning she had command auditory hallucinations to kill children. She had friends visit and they brought in children and the voices told her to kill the children. She has no history of violence or violently acting out. Of note her urine tox was positive for amphetamines. Once sedated on regularly high doses of Haldol and Zyprexa I believe she needs Vyvanse and stimulants to stay awake. She is terrified she will act on ego dystonic obsessive thoughts of suicide and homicide. In my treatment of her I have not noticed antipsychotics to alter the intensity nor the frequency of these symptoms. I am concerned that the patient my have complex PTSD as the main source of these symptoms. The patient continues to report improvement in her symptoms with thiothixene though no improvement over yesterday and had episode of paranoia yesterday. She is requesting an increase in the Navane. She denies side effects. She reports sleep has improved. She feels she may be stable enough for discharge in next few days depending on whether homicidal ideation abates. [place] I Major depressive disorder, recurrent, severe, with psychotic features. [place] II Borderline personality disorder versus traits. [place] III 1. Recent platelet transfusion for presumed critically low platelets and white blood cell count. This appears to have been a laboratory error and the patient has been medically cleared for discharge 2. Asthma. 3. Fibromyalgia. [place] IV Moderate with worsening psychotic symptoms and concern for safety in the home. [place] V Global Assessment of Functioning 35. Medications Treatments 1. The patient is admitted to the inpatient unit and will be provided a safe and secure environment. 2. The patient is denying current active suicidality and is not in need of a one-to-one at this time. She is agreeing to notify us should he have any acute suicidal or homicidal thoughts. 3. The patient is encouraged to participate with group and milieu activities. 4. The patient will be seen by the treatment team on a daily basis to assess symptoms, side effects and response to treatment. 5. Increase thiothixene to 15mg twice a day 6. Temazepam 15mg po nightly prn insomnia, may repeat x 1 7. Review cytochrome p450 availability. 8. Anticipated length of stay is 3-5 days. Shalom Petit MD September 02, 2016 15:52
--- NOTE | 2016-09-02 15:55 | NUR ---
Observations 0700 to 1900 Pt maintained behavioral control throughout the shift. Pt is flat, withdrawn. Pt spent most of day out on unit, but did not seek interaction with peers or staff. Pt spent the majority of day watching TV, and wasn't interested in participating in community activities. Pt ate 100% of breakfast and lunch and was observed every 15 minutes as ordered.
--- NOTE | 2016-09-02 22:44 | NUR ---
3-11 nurse note Pt. appropriate, well groomed. Flat affect. Minimal interaction. Having auditory hallucinations: states that she is hearing "clowns laughing and the SWAT team is out to get me." Taking medications as scheduled. Had increase of Navan from 10 to 20mg this evening per Dr. Petit. Pt. attended group. Eating well, most time spent in front of the TV. Did request ativan for anxiety rated 6/10. Reported med to be affective. Also requested tamazapam for HS. Pt. currently resting. Frequent checks for safety continue.
--- NOTE | 2016-09-03 06:05 | NUR ---
Sleep 11p-7a Adequate sleep through the night. Brief awakening x1 for a snack and quickly back to sleep. Total sleep 7.5+ hours.
[2016-09-03] MEDS: BusPIRone 15 mg Dividose Tablet PO SCH ×2 (08:13→13:56)
[2016-09-03] MEDS: diphenhydrAMINE 25 mg Capsule PO SCH ×2 (08:13→21:10)
[2016-09-03] MEDS: DULoxetine 30 mg DR Capsule PO SCH (08:14)
--- NOTE | 2016-09-03 11:58 | NUR ---
Nursing Day Shift- S/O- Pt. had slept well per report. She was awake and dressed for breakfast. Pt. eat well at meals and watched TV. She appeared flat and did not initiate conversations. Pt. declined groups. She was able to contract for safety and denied suicidal intent. A- Appears relaxed on the unit. P- Cont. BHTP.
--- NOTE | 2016-09-03 14:52 | PCM.PNPSY ---
Subjective Date of Service September 03, 2016 Subjective I spent 30 minutes both reviewing treatment plan with clinical team, interviewing the patient and providing supportive/educational psychotherapy. I spent more than 50% of the time counseling the patient. I reviewed the treatment plan with the patient and discussed options available including the potential risks, benefits and side effects. Sarita reports continued improvement in thought organization and mood stability. Staff reports that she has been active and participating well in one-to-one unit and group activities. She slept 8 hours and reports a resolution of homicidal ideation. She reports that her depression is still a 7 out of 10 and her anxiety is 5 out of 10. She reports having a decrease in auditory hallucinations since increasing Navane from 20-30 mg per day. She denies suicidal ideation and states now she is more passively suicidal but has known plan and no intent. She reports resolution of paranoia around feeling that there is a SWAT team out to get her for having previous suicidal ideation. She can feel demons but no longer sees or hears. She denies medication side effects. Patient was able to identify her medications and what they were used to treat. Current Medications Current Medications Thiothixene 20 mg HS PO Last administered on 09/02/16t 21:24; Admin Dose 20 MG; Start 09/02/16 at 21:16 Mental Status Exam Appearance: Neat/well groomed Attitude: Pleasant, Cooperative Behavior: No unusual behavior Affect: Well Modulated/Appropriate, Restricted Mood: Depressed, Anxious Thought Process/Associations: Logical/Sequential, Goal Directed Speech Production: Normal Speech Rate: Normal Speech Articulation: Normal Thought Content: Negativistic Danger to Self/Suicidal Ideati: Passive Delusions: Paranoid (Endorses) Hallucinations: Auditory (Decreased), Visual (Endorses, but decreased) Consciousness: Alert Orientation: Person, Place, Date, Situation Memory: Grossly Intact Estimate Intellectual Function: Above Average Basis for IQ estimate: Awareness current events, Word use/vocabulary, Educational history, Employment history Attention/Concentration & Cogn: Grossly Intact Cognitive Testing Method: Abstract Reasoning during interview Insight: Good Judgement: Good Result Diagram: 09/02/16 0858 09/02/16 0858 Mental Health Plan The patient is a 31-year-old female with recent symptom exacerbation over the last 3 years of a chronic depressive disorder resulting in an atypical presentation of auditory, visual, and command hallucinations. In the emergency room the initial reports of her white blood cell count and platelets were in the critically low range. Oncology was consulted and she was given platelets and admitted to the intensive care unit. Over the past 24 hours all the results have come back essentially normal and the medical team believes that this was a laboratory error. The medicine service we will be discharging her today and I am recommending admission to our unit to deal with complaint of command auditory hallucinations. An MRI with and without contrast was obtained last year and did not demonstrate any significant abnormalities, and it is felt that her symptoms are primarily psychiatric in origin. She has been admitted multiple times to [facility] and to our care center. She has also been admitted to multiple different hospitals in the area. She attempts to treat the auditory hallucinations with high doses of multiple antipsychotics. When she is here and under observation we have not noticed a significant decrease in the auditory hallucinations no matter what neuroleptic or dose is used. She states that she sees Dr. Carissa Partida, a psychiatrist in [place]. She reports Dr. Partida increased the Haldol from 2 mg twice a day to 5 mg 3 times a day and added Zyprexa 5 twice a day. The patient had a brief decrease in symptoms for 1-2 days, and then again had a recurrence of symptoms. She currently reports manical clowns master-minding her demise. She feels that there are demons's waiting around the hospital. She stated this morning she had command auditory hallucinations to kill children. She had friends visit and they brought in children and the voices told her to kill the children. She has no history of violence or violently acting out. Of note her urine tox was positive for amphetamines. Once sedated on regularly high doses of Haldol and Zyprexa I believe she needs Vyvanse and stimulants to stay awake. She is terrified she will act on ego dystonic obsessive thoughts of suicide and homicide. In my treatment of her I have not noticed antipsychotics to alter the intensity nor the frequency of these symptoms. I am concerned that the patient my have complex PTSD as the main source of these symptoms. The patient continues to report improvement in her symptoms with thiothixene though no improvement over yesterday and had episode of paranoia yesterday. She is tolerating the increase in the Navane. She denies side effects. She reports sleep has improved. She feels she may be stable enough for discharge in next few days . [place] Eldred I Major depressive disorder, recurrent, severe, with psychotic features. 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 Eld[place] III 1. Recent platelet transfusion for presumed critically low platelets and white blood cell count. This appears to have been a laboratory error and the patient has been medically cleared for discharge 2. Asthma. 3. Fibromyalgia. [place] IV Moderate with worsening psychotic symptoms and concern for safety in the home. [place] V Global Assessment of Functioning 35. Medications Treatments 1. The patient is admitted to the inpatient unit and will be provided a safe and secure environment. 2. The patient is denying current active suicidality and is not in need of a one-to-one at this time. She is agreeing to notify us should he have any acute suicidal or homicidal thoughts. 3. The patient is encouraged to participate with group and milieu activities. 4. The patient will be seen by the treatment team on a daily basis to assess symptoms, side effects and response to treatment. 5. thiothixene 10 mg every morning 20 mg at bedtime 6. Temazepam 15mg po nightly prn insomnia, may repeat x 1 7. Review cytochrome p450 availability. 8. Anticipated length of stay is 3 additional days. Shalom Petit MD September 03, 2016 14:52
--- NOTE | 2016-09-03 15:04 | NUR ---
Obs Dayshift Pt is Isolating either in her room or sitting alone in the TV/DR area. Little to no engaging w/ peers. Pt did attend a group for a very short time in the afternoon. Pt appears close to the same as last week, states that she continues to see things. Pt is polite, disengaged, quiet, reserved, isolating. Good ADL's, Good meals
[2016-09-03 17:14] VITALS: BP 125/73; PULSE 123; RESP 20
[2016-09-03] MEDS: LORazepam 1 mg Tablet PO PRN (17:45)
--- NOTE | 2016-09-03 18:21 | NUR ---
NURSING NOTE [id number] Mood: "anxious... I feel like the SWAT team is coming" Affect: calm Behavior: pt. is visible in the common area all shift; at start of shift she attended activity group and worked on an activity packet thereafter, mostly watched TV. Asked for PRN Ativan 1 mg @ 17:45 as she was having intrusive thoughts about a SWAT team coming for her. Her mother visited. Thought processes: intrusive thoughts re: SWAT team and flashing images of herself in her mind of herself committing suicide in various ways; "shooting myself with a gun, overdosing, jumping off a bridge." Denies any intent and says "I don't want to do this and I'm here to get better." Denies HI this shift. Endorsed AH: "I'm hearing clowns laughing at me." States that she can "sense" demons outside unit doorways but is not visualizing them. Addendum: 09/03/16 at 2147 by ASPEN VU RN Temazepam 15 mg PRN given @ HS
--- NOTE | 2016-09-04 05:13 | NUR ---
Nursing notes: restaurant shift leader/ sleep Patient appears to be sleeping on safety checks during the night. Offers no complaints.
[2016-09-04] MEDS: diphenhydrAMINE 25 mg Capsule PO SCH ×2 (09:15→21:09)
[2016-09-04] MEDS: BusPIRone 15 mg Dividose Tablet PO SCH ×2 (09:16→13:53)
[2016-09-04] MEDS: DULoxetine 30 mg DR Capsule PO SCH (09:17)
[2016-09-04 11:35] VITALS: BP 120/74; PULSE 95; RESP 17
--- NOTE | 2016-09-04 12:30 | NUR ---
Nursing Note [id number] Mood S/O: Pt ate 100% of breakfast. Vital signs stable. Pt out in milieu. She is appropriate on unit. Pleasant & cooperative with cares. Pt rates her depression at a "7" on a scale of 1-10/10 the worst. She rates her anxiety at a "5." She reports that her "symptoms are waning." She endorses paranoid thoughts of people "lurking outside her door." She reports continues having hallucinations about clowns & voices telling her to hurt children. Pt states she wants to go home, but wants to feel better. A: Pt con't to have psychotic sx. P: Provide supportive environment. Monitor medications & effects.
--- NOTE | 2016-09-04 13:57 | PCM.PNPSY ---
Subjective Date of Service September 04, 2016 Subjective I spent 30 minutes both reviewing treatment plan with clinical team, interviewing the patient and providing supportive/educational psychotherapy. I spent more than 50% of the time counseling the patient. I reviewed the treatment plan with the patient and discussed options available including the potential risks, benefits and side effects. Sarita reports continued improvement in thought organization and mood stability. Staff reports that she has been active and participating well in one-to-one unit and group activities. She slept 7 hours and reports a resolution of homicidal ideation. She reports that her depression is still a 8 out of 10 and her anxiety is 6 out of 10. She reports having a decrease in auditory hallucinations since increasing Navane increased from 20-30 mg per day. She reports suicidal ideation but states now she is more passively suicidal but has known plan and no intent. She reports an exacerbation of paranoia around the feeling that there is a SWAT team out to get her for having previous homicidal ideation. She can feel demons but no longer sees or hears. She reports hearing clowns laughing at her in a derogatory manner. She denies medication side effects. Patient was able to identify her medications and what they were used to treat. Current Medications Current Medications Thiothixene 20 mg HS PO Last administered on 09/03/16t 21:10; Admin Dose 20 MG; Start 09/02/16 at 21:16 Mental Status Exam Vital Signs Vital Signs Date Time Temp Pulse Resp B/P Pulse Ox O2 Delivery O2 Flow Rate FiO2 09/04/16 11:35 36.4 95 17 120/74 Appearance: Neat/well groomed Attitude: Pleasant, Cooperative Behavior: No unusual behavior Affect: Well Modulated/Appropriate, Restricted Mood: Depressed, Anxious Thought Process/Associations: Logical/Sequential, Goal Directed Speech Production: Normal Speech Rate: Normal Speech Articulation: Normal Thought Content: Negativistic Danger to Self/Suicidal Ideati: Passive Delusions: Paranoid (Endorses) Hallucinations: Auditory (Decreased), Visual (Endorses, but decreased) Consciousness: Alert Orientation: Person, Place, Date, Situation Memory: Grossly Intact Estimate Intellectual Function: Above Average Basis for IQ estimate: Awareness current events, Word use/vocabulary, Educational history, Employment history Attention/Concentration & Cogn: Grossly Intact Cognitive Testing Method: Abstract Reasoning during interview Insight: Good Judgement: Good Result Diagram: 09/02/16 0858 09/02/16 0858 Mental Health Plan The patient is a 31-year-old female with recent symptom exacerbation over the last 3 years of a chronic depressive disorder resulting in an atypical presentation of auditory, visual, and command hallucinations. In the emergency room the initial reports of her white blood cell count and platelets were in the critically low range. Oncology was consulted and she was given platelets and admitted to the intensive care unit. Over the past 24 hours all the results have come back essentially normal and the medical team believes that this was a laboratory error. The medicine service we will be discharging her today and I am recommending admission to our unit to deal with complaint of command auditory hallucinations. An MRI with and without contrast was obtained last year and did not demonstrate any significant abnormalities, and it is felt that her symptoms are primarily psychiatric in origin. She has been admitted multiple times to [facility] and to our care center. She has also been admitted to multiple different hospitals in the area. She attempts to treat the auditory hallucinations with high doses of multiple antipsychotics. When she is here and under observation we have not noticed a significant decrease in the auditory hallucinations no matter what neuroleptic or dose is used. She states that she sees Dr. Carissa Partida, a psychiatrist in [place]. She reports Dr. Partida increased the Haldol from 2 mg twice a day to 5 mg 3 times a day and added Zyprexa 5 twice a day. The patient had a brief decrease in symptoms for 1-2 days, and then again had a recurrence of symptoms. She currently reports manical clowns master-minding her demise. She feels that there are demons's waiting around the hospital. She stated this morning she had command auditory hallucinations to kill children. She had friends visit and they brought in children and the voices told her to kill the children. She has no history of violence or violently acting out. Of note her urine tox was positive for amphetamines. Once sedated on regularly high doses of Haldol and Zyprexa I believe she needs Vyvanse and stimulants to stay awake. She is terrified she will act on ego dystonic obsessive thoughts of suicide and homicide. In my treatment of her I have not noticed antipsychotics to alter the intensity nor the frequency of these symptoms. I am concerned that the patient my have complex PTSD as the main source of these symptoms. The patient continues to report improvement in her symptoms with thiothixene though no improvement over yesterday and continues to feel paranoid. She is tolerating the increase in the Navane. She denies side effects. She reports sleep has improved. [place] I Major depressive disorder, recurrent, severe, with psychotic features. [place] II Borderline personality disorder versus traits. [place] III 1. Recent platelet transfusion for presumed critically low platelets and white blood cell count. This appears to have been a laboratory error and the patient has been medically cleared for discharge 2. Asthma. 3. Fibromyalgia. [place] IV Moderate with worsening psychotic symptoms and concern for safety in the home. [place] V Global Assessment of Functioning 35. Medications Treatments 1. The patient is admitted to the inpatient unit and will be provided a safe and secure environment. 2. The patient is denying current active suicidality and is not in need of a one-to-one at this time. She is agreeing to notify us should he have any acute suicidal or homicidal thoughts. 3. The patient is encouraged to participate with group and milieu activities. 4. The patient will be seen by the treatment team on a daily basis to assess symptoms, side effects and response to treatment. 5. thiothixene 10 mg every morning 20 mg at bedtime 6. Temazepam 15mg po nightly prn insomnia, may repeat x 1 7. Review cytochrome p450 availability. 8. Anticipated length of stay is 2 additional days. Shalom Petit MD September 04, 2016 13:56
--- NOTE | 2016-09-04 19:31 | NUR ---
MHA Note D- Patient attended structured groups and activities on the unit. She attended ADLs including showering and doing laundry. Patient appears well groomed. She ate all of her meals. A- Patient attended groups like art group and the DBT group on [employer]. She stated that she enjoyed the DBT group and took some extra paperwork about it. Patient appears to be socially engaged as well, watching tv and talking to her peers. Patient has spent most of the day out of bed. She denies any suicidal or homicidal ideation. P- Continue current treatment plan.
--- NOTE | 2016-09-04 22:38 | NUR ---
NURSING NOTE [id number] Mood: "okay" Affect: calm, pleasant, polite Behavior: mostly watching TV this shift, did attend all groups, visited, med compliant. Requested PRN Temazepam 15 mg for sleep @ HS. Thought processes: pt. still endorsing AH of clowns laughing but states they have improved and are occurring less frequently. Reports her paranoia is improving.
[2016-09-05] MEDS: oxyCODONE-Acetamin 5-325 mg Tablet PO PRN (01:30)
--- NOTE | 2016-09-05 02:22 | NUR ---
Observations 1900 - 0700 Pt was in D.R. and watching TV at the start of the shift. Pt appeared to be flat, bright when engaged and mostly keeps to herself. Pt speech and eye contact was ok. Pt was social with some peers and staff. Pt attended wrap up group, stated her positive for the day "I got to see my and enjoyed watching some TV" Pt rated her mood 5/10, with 10 being the best. Pt ate snack. Pt first appeared asleep at 2230. Pt woke up around 0200, had a snack and juice before going back to her room. Pt was asleep again at 0230. Pt was observed every 15 minutes through the night as ordered. Pt is currently asleep with respirations apparent.
--- NOTE | 2016-09-05 06:00 | NUR ---
Nursing notes: marketing sales representative/sleep, prn Patient asleep until 0115, then awake with complains of "fibromyalgia" pain all over especially in my back. Patient received Percocet 1 tab at 0130 with apparent good effect as patient appears to be sleeping on subsequent safety checks during the night
[2016-09-05] MEDS: BusPIRone 15 mg Dividose Tablet PO SCH ×2 (08:09→14:55)
[2016-09-05] MEDS: DULoxetine 30 mg DR Capsule PO SCH (08:10)
[2016-09-05] MEDS: diphenhydrAMINE 25 mg Capsule PO SCH ×2 (08:10→21:09)
--- NOTE | 2016-09-05 12:26 | PCM.PNPSY ---
Subjective Date of Service September 05, 2016 Subjective I spent 30 minutes both reviewing treatment plan with clinical team, interviewing the patient and providing supportive/educational psychotherapy. I spent less than 50% of the time counseling the patient. I reviewed the treatment plan with the patient and discussed options available including the potential risks, benefits and side effects. Sarita reports continued improvement in thought organization and mood stability. Staff reports that she has been active and participating well in one-to-one unit and group activities. She slept 7 hours and reports a resolution of homicidal ideation. She reports that her depression is still an 8 out of 10 and her anxiety is 6 out of 10. She reports having a decrease in auditory hallucinations since increasing Navane increased from 20-30 mg per day. She reports suicidal ideation but states now she is more passively suicidal but has known plan and no intent. She still reports an exacerbation of paranoia around the feeling that there is a SWAT team out to get her for having previous homicidal ideation. She can feel demons but no longer sees or hears. She reports hearing clowns laughing at her in a derogatory manner. She denies medication side effects. Patient was able to identify her medications and what they were used to treat. Mental Status Exam Appearance: Neat/well groomed Attitude: Pleasant, Cooperative Behavior: No unusual behavior Affect: Well Modulated/Appropriate, Restricted Mood: Depressed, Anxious Thought Process/Associations: Logical/Sequential, Goal Directed Speech Production: Normal Speech Rate: Normal Speech Articulation: Normal Thought Content: Negativistic Danger to Self/Suicidal Ideati: Passive Delusions: Paranoid (Endorses) Hallucinations: Auditory (Decreased), Visual (Endorses, but decreased) Consciousness: Alert Orientation: Person, Place, Date, Situation Memory: Grossly Intact Estimate Intellectual Function: Above Average Basis for IQ estimate: Awareness current events, Word use/vocabulary, Educational history, Employment history Attention/Concentration & Cogn: Grossly Intact Cognitive Testing Method: Abstract Reasoning during interview Insight: Good Judgement: Good Result Diagram: 09/02/1658 09/02/16857 Mental Health Plan The patient is a 31-year-old female with recent symptom exacerbation over the last 3 years of a chronic depressive disorder resulting in an atypical presentation of auditory, visual, and command hallucinations. In the emergency room the initial reports of her white blood cell count and platelets were in the critically low range. Oncology was consulted and she was given platelets and admitted to the intensive care unit. Over the past 24 hours all the results have come back essentially normal and the medical team believes that this was a laboratory error. The medicine service we will be discharging her today and I am recommending admission to our unit to deal with complaint of command auditory hallucinations. An MRI with and without contrast was obtained last year and did not demonstrate any significant abnormalities, and it is felt that her symptoms are primarily psychiatric in origin. She has been admitted multiple times to [facility] and to our care center. She has also been admitted to multiple different hospitals in the area. She attempts to treat the auditory hallucinations with high doses of multiple antipsychotics. When she is here and under observation we have not noticed a significant decrease in the auditory hallucinations no matter what neuroleptic or dose is used. She states that she sees Dr. Carissa Partida, a psychiatrist in [place]. She reports Dr. Partida increased the Haldol from 2 mg twice a day to 5 mg 3 times a day and added Zyprexa 5 twice a day. The patient had a brief decrease in symptoms for 1-2 days, and then again had a recurrence of symptoms. She currently reports manical clowns master-minding her demise. She feels that there are demons's waiting around the hospital. She stated this morning she had command auditory hallucinations to kill children. She had friends visit and they brought in children and the voices told her to kill the children. She has no history of violence or violently acting out. Of note her urine tox was positive for amphetamines. Once sedated on regularly high doses of Haldol and Zyprexa I believe she needs Vyvanse and stimulants to stay awake. She is terrified she will act on ego dystonic obsessive thoughts of suicide and homicide. In my treatment of her I have not noticed antipsychotics to alter the intensity nor the frequency of these symptoms. I am concerned that the patient my have complex PTSD as the main source of these symptoms. The patient continues to report improvement in her symptoms with thiothixene though no improvement over yesterday and continues to feel paranoid. She is tolerating the increase in the Navane. She denies side effects. She reports sleep has improved. If she continues to improve will likely be ready for discharge in 24-48 hours. [place] I Major depressive disorder, recurrent, severe, with psychotic features. [place] II Borderline personality disorder versus traits. [place] III 1. Recent platelet transfusion for presumed critically low platelets and white blood cell count. This appears to have been a laboratory error and the patient has been medically cleared for discharge 2. Asthma. 3. Fibromyalgia. [place] IV Moderate with worsening psychotic symptoms and concern for safety in the home. [place] V Global Assessment of Functioning 35. Medications Treatments 1. The patient is admitted to the inpatient unit and will be provided a safe and secure environment. 2. The patient is denying current active suicidality and is not in need of a one-to-one at this time. She is agreeing to notify us should he have any acute suicidal or homicidal thoughts. 3. The patient is encouraged to participate with group and milieu activities. 4. The patient will be seen by the treatment team on a daily basis to assess symptoms, side effects and response to treatment. 5. thiothixene 10 mg every morning 20 mg at bedtime 6. Temazepam 15mg po nightly prn insomnia, may repeat x 1 7. Anticipated length of stay is 2 additional days. Shalom Petit MD September 05, 2016 12:26
[2016-09-05 12:41] VITALS: BP 113/57; PULSE 90
[2016-09-05] MEDS: LORazepam 1 mg Tablet PO PRN (12:55)
--- NOTE | 2016-09-05 14:08 | NUR ---
Nursing Note [id number] Mood, Behavior S/O: Pt eating well. Pt attended community meeting & pet therapy on unit. Pt rates mood at a "7" on a scale of 1-10/10 the worst. She rates her anxiety at a "5." Pt later requested Ativan for increased anxiety. Pt states, "I feel blah." She reports suicidal ideation "every 10 minutes...I wouldn't do anything....The voices aren't bad enough." Pt out on unit watching television much of the day. Flat affect. Conversation tracking clear & organized with normal rate & rhythm. A: Pt con't to have suicidal ideation. P: Provide supportive environment. Monitor medications & effects.
--- NOTE | 2016-09-05 18:05 | NUR ---
Observations [id number] Pt was asleep upon start of shift. Pt continues to feel down, is keeping a journal regarding mental health and how she is feeling. Mood appears detached and despondent. Pt watched TV all day, did not participate in group activities aside from morning meeting. She attended all meals, eating 100%. Pt was observed every 15 minutes of shift as directed.
--- NOTE | 2016-09-06 04:17 | NUR ---
Nursing Noc Pt pleasant and withdrawn. Spent evening watching TV and sitting with other patients but not interacting. Pt appears to baseline noted from previous admissions. Pt denies A/V hallucinations or homicidal/suicidal ideation. Possible discharge in Am. Q15 minute safety checks performed, continuing to monitor mood behavior and emotional state. CP
[2016-09-06] MEDS: diphenhydrAMINE 25 mg Capsule PO SCH ×2 (08:32→21:50)
[2016-09-06] MEDS: BusPIRone 15 mg Dividose Tablet PO SCH ×2 (08:33→14:38)
[2016-09-06] MEDS: DULoxetine 30 mg DR Capsule PO SCH (08:33)
--- NOTE | 2016-09-06 13:45 | NUR ---
Nursing Day note- "I am doing ok. Doctor says I can go home tomorrow." Calm, keeping mostly to herself. Stated, I don't see the SWAT teams as much anymore." Rated anxiety 5/10; depression 6/10. Says that the meds are "helping", and she slept from 12-8:00 am, only waking a couple of times.
--- NOTE | 2016-09-06 14:59 | PCM.PNPSY ---
Subjective Date of Service September 06, 2016 Subjective I spent 30 minutes both reviewing treatment plan with clinical team, interviewing the patient and providing supportive/educational psychotherapy. I spent less than 50% of the time counseling the patient. I reviewed the treatment plan with the patient and discussed options available including the potential risks, benefits and side effects. Sarita reports continued improvement in thought organization and mood stability. Staff reports that she has been active and participating well in one-to-one unit and group activities. She slept 7 hours and reports a resolution of homicidal ideation. She reports that her depression is decreasing and her anxiety is at a tolerable level. She reports having a resolution of auditory hallucinations since increasing Navane increased from 20-30 mg per day. She reports suicidal ideation but states now she is more passively suicidal but has known plan and no intent. She still reports an exacerbation of paranoia around the feeling that there is a SWAT team out to get her for having previous homicidal ideation. She no longer sentences demons nor does she hear clowns laughing at her in a derogatory manner. She denies medication side effects. Patient was able to identify her medications and what they were used to treat. Mental Status Exam Appearance: Neat/well groomed Attitude: Pleasant, Cooperative Behavior: No unusual behavior Affect: Well Modulated/Appropriate, Restricted Mood: Depressed, Anxious Thought Process/Associations: Logical/Sequential, Goal Directed Speech Production: Normal Speech Rate: Normal Speech Articulation: Normal Thought Content: Negativistic Danger to Self/Suicidal Ideati: Passive Delusions: Paranoid (Endorses) Hallucinations: Auditory (Decreased), Visual (Endorses, but decreased) Consciousness: Alert Orientation: Person, Place, Date, Situation Memory: Grossly Intact Estimate Intellectual Function: Above Average Basis for IQ estimate: Awareness current events, Word use/vocabulary, Educational history, Employment history Attention/Concentration & Cogn: Grossly Intact Cognitive Testing Method: Abstract Reasoning during interview Insight: Good Judgement: Good Result Diagram: 09/02/16 0858 09/02/16 0858 Mental Health Plan The patient is a 31-year-old female with recent symptom exacerbation over the last 3 years of a chronic depressive disorder resulting in an atypical presentation of auditory, visual, and command hallucinations. In the emergency room the initial reports of her white blood cell count and platelets were in the critically low range. Oncology was consulted and she was given platelets and admitted to the intensive care unit. Over the past 24 hours all the results have come back essentially normal and the medical team believes that this was a laboratory error. The medicine service we will be discharging her today and I am recommending admission to our unit to deal with complaint of command auditory hallucinations. An MRI with and without contrast was obtained last year and did not demonstrate any significant abnormalities, and it is felt that her symptoms are primarily psychiatric in origin. She has been admitted multiple times to [facility] and to our care center. She has also been admitted to multiple different hospitals in the area. She attempts to treat the auditory hallucinations with high doses of multiple antipsychotics. When she is here and under observation we have not noticed a significant decrease in the auditory hallucinations no matter what neuroleptic or dose is used. She states that she sees Dr. Carissa Partida, a psychiatrist in [place]. She reports Dr. Partida increased the Haldol from 2 mg twice a day to 5 mg 3 times a day and added Zyprexa 5 twice a day. The patient had a brief decrease in symptoms for 1-2 days, and then again had a recurrence of symptoms. She currently reports manical clowns master-minding her demise. She feels that there are demons's waiting around the hospital. She stated this morning she had command auditory hallucinations to kill children. She had friends visit and they brought in children and the voices told her to kill the children. She has no history of violence or violently acting out. Of note her urine tox was positive for amphetamines. Once sedated on regularly high doses of Haldol and Zyprexa I believe she needs Vyvanse and stimulants to stay awake. She is terrified she will act on ego dystonic obsessive thoughts of suicide and homicide. In my treatment of her I have not noticed antipsychotics to alter the intensity nor the frequency of these symptoms. I am concerned that the patient my have complex PTSD as the main source of these symptoms. The patient continues to report improvement in her symptoms with thiothixene though no improvement over yesterday and continues to feel paranoid. She is tolerating the increase in the Navane. She denies side effects. She reports sleep has improved. If she continues to improve will likely be ready for discharge in 24 hours. [place] I Major depressive disorder, recurrent, severe, with psychotic features. [place] II Borderline personality disorder versus traits. [place] III 1. Recent platelet transfusion for presumed critically low platelets and white blood cell count. This appears to have been a laboratory error and the patient has been medically cleared for discharge 2. Asthma. 3. Fibromyalgia. [place] IV Moderate with worsening psychotic symptoms and concern for safety in the home. [place] V Global Assessment of Functioning 40. Medications Treatments 1. The patient is admitted to the inpatient unit and will be provided a safe and secure environment. 2. The patient is denying current active suicidality and is not in need of a one-to-one at this time. She is agreeing to notify us should he have any acute suicidal or homicidal thoughts. 3. The patient is encouraged to participate with group and milieu activities. 4. The patient will be seen by the treatment team on a daily basis to assess symptoms, side effects and response to treatment. 5. thiothixene 10 mg every morning 20 mg at bedtime 6. Temazepam 15mg po nightly prn insomnia, may repeat x 1 7. Anticipated length of stay is 1 additional days. Shalom Petit MD September 06, 2016 14:59
--- NOTE | 2016-09-06 15:09 | NUR ---
Observations 0700 - 1900 Pt was flat, guarded and withdrawn. Pt was isolative and stayed in her room and kept to herself, not socializing with others. Pt watched TV briefly in the afternoon. Pt speech and eye contact was good. Pt is pleasant and friendly upon approach. Pt is polite and cooperative. Pt maintained behavior control throughout the shift. Pt attended community meeting and set a daily goal. Pt rated her mood 4/10, with 10 being the best. Pt was asked to attend arts and crafts group but she declined. Pt attended meals in [place] and ate 100% of meals. Pt ate snack. Pt was observed every 15 minutes throughout the shift as ordered.
[2016-09-06 16:03] VITALS: BP 126/70; PULSE 86; RESP 14
[2016-09-06] MEDS: LORazepam 1 mg Tablet PO PRN (19:24)
--- NOTE | 2016-09-06 22:53 | NUR ---
NURSING NOTE [id number] Mood: "a little anxious" Affect: pleasant, polite, cooperative Behavior: sitting in common area watching TV for most of the shift. Requested PRN Ativan 1 mg for 6/10 anxiety @ 19:24. Thought processes: denies any hallucinations today which she reports is significant as she has not had a hallucination-free day for a while. Reports she still feels paranoid that a SWAT team is coming for her but that the paranoia has decreased somewhat. Denies SI/HI. PRNs Ativan 1 mg @ 19:24 Temazepam 15 mg @ HS
--- NOTE | 2016-09-07 04:05 | NUR ---
nursing, nights, 11-7 s/o- has appeared to sleep after 2244 during q 15 minute assessments. a- no apparent distress. p- monitor behavior/emotional state, quality, times and amount of sleep, use and effect of medication. sammy
[2016-09-07] MEDS: DULoxetine 30 mg DR Capsule PO SCH (08:30)
[2016-09-07] MEDS: diphenhydrAMINE 25 mg Capsule PO SCH (08:31)
[2016-09-07] MEDS: BusPIRone 15 mg Dividose Tablet PO SCH (08:31)
[2016-09-07 08:38] VITALS: BP 111/60; PULSE 117; RESP 20
[2016-09-07] MEDS ORDERED: FAMO20T PO (11:09)
[2016-09-07] MEDS ORDERED: NAPR250T PO (11:09)
[2016-09-07] MEDS ORDERED: THIO10CA2 PO ×2 (11:09)
[2016-09-07] MEDS ORDERED: BUSP15TA3 PO (11:09)
[2016-09-07] MEDS ORDERED: LEVO150T5 PO (11:09)
[2016-09-07] MEDS ORDERED: DULO60CA42 PO (11:09)
--- NOTE | 2016-09-07 11:14 | PCM.DIMED ---
Discharge Instructions Date of Service September 07, 2016 Dates of Hospitalization August 25, 2016 at 13:45 Discharge Diagnosis Discharge Diagnosis [place] I Major depressive disorder, recurrent, severe, with psychotic features. [place] II Borderline personality disorder versus traits. [place] III 1. Recent platelet transfusion for presumed critically low platelets and white blood cell count. This appears to have been a laboratory error and the patient has been medically cleared for discharge 2. Asthma. 3. Fibromyalgia. [place] IV Moderate with worsening psychotic symptoms and concern for safety in the home. [place] V Global Assessment of Functioning 45 Diet Discharge Diet: No restrictions Activity Discharge Activity: No restrictions Call your provider Call your provider for: Fever or Chills, Bleeding Patient Instructions Patient Instructions I Strongly encouraged patient to follow up with outpatient care: 1-Recommended patient takes medication as prescribed and not alter this unless under the direct care of a provider. 2-Recommend client refrain from recreational drugs and alcohol while taking psychiatric medications. Follow-up plan Discharging to inpatient psychiatry. CBC from 08/26, 08/28, 09/02 all normal. Psychiatry discharge: Client follow-up with psychiatrist Dr. Partida 09/[address] [facility]. Follow-up Provider: Candi Sellers MD Follow-up with PCP in: 2 weeks (no follow-up required unless blood work abnormal) Shalom Petit MD September 07, 2016 11:14
--- NOTE | 2016-09-07 12:14 | NUR ---
DISCHARGE Patient discharged at 1215, left with friend who will drive her home. Patient denies pain, shortness of breath and nausea. Medications reviewed and new Rx's given as well as care notes for new medication. Patient verbalized understanding for medications. Patient given follow up appointments with doctors (times and phone numbers provided to patient). Patient has all her personal belongings and has sign safety contract.
--- NOTE | 2016-09-07 12:42 | DIS ---
[address] [address] DISCHARGE SUMMARY PATIENT: SARITA LAST : 1985 MR#: [id number] ADMIT: 08/25/2016 JOB ID: [id number] DIS: 09/07/2016 IDENTIFICATION: Patient is a 31-year-old, white female, with recent exacerbation of depressive disorder with atypical psychosis in terms of auditory, visual and command hallucinations. REASON FOR ADMISSION: Suicidal and homicidal ideation. SUMMARY OF PRESENT ILLNESS: Sarita is a 31-year-old, white female, well-known to [facility], who has had a recent symptom exacerbation of the last two years of a chronic depressive disorder resulting in very unusual command auditory and visual hallucinations. She also has marked delusional thought. In the emergency department, initially her white blood cell count and platelets were in a critically low range. Oncology was consulted and she was given platelets and initially admitted to the Intensive Care Unit. However over a 24 hour period, all results came back normal and it was believed this was a laboratory error. She was transferred to our unit for stabilization and care. HOSPITAL COURSE: Client admitted to our unit and was provided with a high degree of safety through the structure and active adult engagement she received here. We had her participate in one-to-one unit and group activities focused on improving coping skills, improving reality based thinking and coming up with a safety plan should suicidal ideation recur as an outpatient. Client participated well in all the above therapies. She showed gradual but steady decrease in the intensity of psychotic and depressive symptoms when she was here. Her medication regimen was altered to Navane 10 mg in the morning 20 mg at night, prazosin 15 mg h.s., Cymbalta 120 mg daily, BuSpar 20 mg b.i.d., amitriptyline 15 mg h.s. On this regimen with the therapy she showed a gradual and steady improvement. Today she is requesting discharge and this appears appropriate. MENTAL STATUS EXAMINATION: Neatly stylishly dressed. Good eye contact. Behavior calm. Attitude cooperative and pleasant. Speech normal rate, rhythm. Mood dysphoric. Affect congruent. Normal intensity. No lability thought process. Client is able to relate a coherent history. No signs of psychosis. Does not appear to be responding to internal stimuli. Thought content significant for future planning, how to take care of herself, her partner, her dog and her mom. Denied suicidal ideation or auditory hallucinations. Alert and oriented to person, place, and date. Insight and judgment appear appropriate and at baseline. Impulse control highly contained. Reality testing intact. Competence to handle current stressors appears appropriate. DISCHARGE PLAN: Client to follow up with her psychiatrist, Dr. Partida, September 2016 at the [facility]. She already has an appointment with this psychiatrist. DISCHARGE DIAGNOSES: AXIS I: 1. Major depressive disorder recurrent, severe, with psychotic features in early remission. 2. Borderline personality disorder versus traits. 3. Recent platelet transfusion for presumed critically low platelets and blood cell count. This appears to be a laboratory error and patient has been medically cleared for discharge. AXIS II: Asthma. AXIS III: Fibromyalgia. AXIS IV: Moderate with worsening of psychological symptoms and concern for safety at home. AXIS V: Global Assessment of Functioning equal to 45. DISCHARGE MEDICATIONS: 1. Navane 10 mg q.a.m., 20 mg h.s. 2. Prazosin 15 h.s. 3. Levothyroxine 1500 mcg daily. 4. Pepcid 20 b.i.d. 5. Cymbalta 120 daily. 6. Benadryl 25 b.i.d. 7. BuSpar 20 b.i.d. 8. Amitriptyline 25 h.s. ACTIVITY AND DIET: Recommend client refrain from recreational drugs and alcohol while taking psychiatric medications. Recommend she work with a psychiatrist before altering psychiatric meds. CONDITION ON DISCHARGE: Good. PROGNOSIS: Good.
--- NOTE | 2016-09-07 13:30 | NUR ---
Digital Forensics Examiner/Counselor: S/O: Patient slept 6.5 hours last night per staff. She denies S/I and H/I. She does not report any auditory and visual hallucinations. Out-patient appointments: Dr. Romelia Hurley, psychologist, 09/12/16 at 2:00pm; Dr. Candi Sellers, 09/08/16 at 3:15pm; Dr. Elpidio Partida, 09/26/16 at 11:45am. A: Patient is cooperative, hopeful, improved, brighter. P: Follow the care plan, coordinate with out-patient provider.
== END 2016-09-07 12:15 | disposition home or self-care (01) | DRG 813 ==
LOC: SED 10:20 → MOC 13:45 → OSC 13:45 → MHC 08-26 16:04
PROVIDERS: ADMIT Hospitalist; ATTEND Psychiatry & Neurology Psychiatry
PROC: 30233R1 Transfusion of Nonautologous Platelets into Peripheral Vein, Percutaneous Approach (ICD-10-PCS; principal; 2016-08-25)
DX: D69.6 Thrombocytopenia, unspecified (principal); R45.851 Suicidal ideations; F33.3 Major depressive disorder, recurrent, severe with psychotic symptoms; Z68.42 Body mass index [BMI] 45.0-49.9, adult; R45.850 Homicidal ideations; E66.01 Morbid (severe) obesity due to excess calories; J45.909 Unspecified asthma, uncomplicated; M79.7 Fibromyalgia; F60.3 Borderline personality disorder; Z88.0 Allergy status to penicillin; Z79.51 Long term (current) use of inhaled steroids; Z91.5 Personal history of self-harm